=== PATIENT | female | born 1955 | race Caucasian/White ===

== ENCOUNTER → 2022-04-17 | Outpatient (CLI) | payer MEDICARE, OTHER, SELFPAY | END | disposition home or self-care (01) | LOC: PSN 10:25 | PROVIDERS: PCP Family Medicine; Referring Provider Internal Medicine Cardiovascular Disease; Visit Provider Internal Medicine Cardiovascular Disease | DX: I48.0 Paroxysmal atrial fibrillation (principal) | CPT/HCPCS: 93225; 93226 ==

== ENCOUNTER → 2022-05-05 | Outpatient (CLI) | payer MEDICARE, OTHER, SELFPAY | END | disposition home or self-care (01) | LOC: CR 13:34 | PROVIDERS: PCP Family Medicine; Referring Provider Internal Medicine Cardiovascular Disease; Visit Provider Internal Medicine Cardiovascular Disease | DX: Z95.5 Presence of coronary angioplasty implant and graft (principal); I49.01 Ventricular fibrillation; I46.9 Cardiac arrest, cause unspecified; I25.2 Old myocardial infarction; I25.5 Ischemic cardiomyopathy; I12.9 Hypertensive chronic kidney disease with stage 1 through stage 4 chronic kidney disease, or unspecified chronic kidney disease; E78.5 Hyperlipidemia, unspecified; N18.9 Chronic kidney disease, unspecified ==

== ENCOUNTER 2022-10-13 09:58 | Emergency (ER) | payer MEDICARE, OTHER, SELFPAY ==
[2022-10-13 10:00] VITALS: BP 93/59; PULSE 66; RESP 16; TEMP 36.2; O2SAT 98; BMI 25.1
--- NOTE | 2022-10-13 10:39 | EDS_ITS ---
HPI HPI - GI History of Present Illness Chief Complaint: Diarrhea Informant: patient and family (daughter) Narrative Narrative: 66-year-old female has had loose-watery nonbloody nonmelanotic diarrhea for the past 3 weeks off-and-on. No fevers or chills, no abdominal pain. Started while she was in [place] where she was for a couple months visiting family, other family members got it after she started, but they got better and she has had recurrent episodes, now has been aggressive again for the last 4 days. She has not been eating and not been drinking, because every time I do it makes the diarrhea worse. She now feels very lightheaded specially with standing, she has had no syncope. No suspicious food intake or uncooked meats or raw fish. No recent antibiotics for anything. This is the first time she has presented for care, but she did see a telemedicine physician while she was in [place] who advised that she take Imodium for 3 days initially. No travel out of the country. 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) Paroxysmal atrial fibrillation Positive JASMINA (antinuclear antibody) ST elevation myocardial infarction (STEMI) of inferior wall (09/07/21) Home Medications aspirin 81 mg tablet,delayed release (Adult Aspirin Regimen) 81 mg PO DAILY 02/21/22 [History Last Taken Unknown] atorvastatin 80 mg tablet 80 mg PO DAILY #90 tabs 02/21/22 [Rx Last Taken Unknown] cholecalciferol (vitamin D3) 25 mcg (1,000 unit) capsule 25 mcg PO DAILY 02/21/22 [History Last Taken Unknown] ferrous sulfate 325 mg (65 mg iron) tablet 325 mg PO DAILY 02/21/22 [History Last Taken Unknown] lisinopril 20 mg tablet 10 mg PO DAILY 02/21/22 [History Last Taken Unknown] sitagliptin phosphate 50 mg-metformin 500 mg tablet (Janumet) 1 tab PO BID 02/21/22 [History Last Taken Unknown] ticagrelor 90 mg tablet (Brilinta) 90 mg PO BID 02/21/22 [History Last Taken Unknown] carvedilol 25 mg tablet 25 mg PO BID #180 tabs 04/24/22 [Rx Last Taken Unknown] ciprofloxacin HCl 500 mg tablet (Cipro) 500 mg PO BID #6 tabs 10/13/22 [Rx Last Taken Unknown] Allergy/AdvReac Type Severity Reaction Status Date / Time latex Allergy Intermediate Swelling Verified 10/13/22 10:01 Penicillins Allergy RASH Verified 10/13/22 10:01 Family History Father Heart disease CHF Surgical History History of cataract surgery History of cholecystectomy History of coronary artery stent placement (09/13/21) Social History Smoking Status: Never smoker alcohol intake: never substance use type: does not use caffeine: Yes Type: coffee Number of servings: 2 ROS ROS ED Constitutional Constitutional ED: Reports malaise; Denies chills or fever(s) Eyes Eyes: Denies change in vision or diplopia ENT ENT ED: Denies rhinorrhea or sore throat Cardiovascular Cardiovascular: Reports lightheadedness and orthostatic symptoms; Denies chest pain, palpitations, pedal edema or syncope Respiratory/Chest Respiratory/Chest: Denies cough or dyspnea Gastrointestinal Gastrointestinal: Reports diarrhea and nausea; Denies abdominal pain, hematemesis, hematochezia, melena or vomiting Genitourinary Genitourinary ED: Denies dysuria or hematuria Musculoskeletal Musculoskeletal: Denies back pain or neck pain Integumentary Denies abscess or rash Neurologic Neurologic: Denies headache(s), paresthesias or weakness Psychiatric Psychiatric: Denies anxiety or suicidal thoughts EXAM Physical Exam Const Vital Signs: 10/13/22 10:00 10/13/22 15:38 10/13/22 16:57 Temperature 97.1 F L Temperature Source Temporal Pulse Rate 66 71 Respiratory Rate 16 15 Blood Pressure 93/59 L 112/64 139/84 H Blood Pressure Mean 70 80 Pulse Ox 98 98 Oxygen Delivery Method Room Air Positive well nourished and well developed General Appearance ED: well developed and NAD HEENT Reports moist mucous membranes normocephalic and atraumatic Eyes PERRL and EOMs intact bilaterally Neck full ROM and supple Resp normal respiratory effort and clear to auscultation bilaterally Cardio regular rate, regular rhythm and no murmurs GI non-tender and non-distended Auscultation: hyperactive bowel sounds Palpation: soft Back/Spine no CVA tenderness General Back: other FROM Extremity normal to inspection General Extremety ED: Negative for edema, pulses abnormal or tenderness General Extremity: Negative for edema or pulses abnormal Neuro oriented x3, CN's II-XII intact bilaterally and no sensory deficits noted Sensorium / Orientation: awake and alert Motor Exam: strength 5/5 throughout Skin no rashes or lesions noted and no wounds MDM MDM MDM Narrative Medical decision making narrative: Patient was given a liter of IV fluids and some Zofran for her nausea, she felt much better on reevaluation. She was able to provide us a diarrhea sample, fecal white blood cell smear returned positive, and the PCR for the enteric bacterial panel did take some time but the patient was agreeable to wait for the results. It turned out negative, as did her C. difficile test. Ova and parasites are sent and pending, I have a low suspicion for that. I am offering the patient a 3-day course of Cipro for this, only because she had acute kidney injury and this has been going on for 3 weeks. She is amenable to that, close outpatient follow-up advised. Her vital signs are normal and she is well- appearing at discharge. I did advise her to discontinue her atorvastatin temporarily while she is on the antibiotic, and I did advise her to drink plenty of fluids, even if it makes the diarrhea worse temporarily. Lab Data Attestation: I reviewed the patient's lab results. Labs: Laboratory Results - last 24 hr 10/13/22 10/13/22 10:53 10:53 WBC 6.8 RBC 3.90 L Hgb 11.5 L Hct 34.9 L MCV 89.5 MCH 29.5 MCHC 33.0 RDW Std Deviation 44.3 H RDW Coeff of Gagan 13.4 Plt Count 176 MPV 9.9 Immature Gran % (Auto) 0.400 Neut % (Auto) 68.8 Lymph % (Auto) 19.6 [place] % (Auto) 9.3 Eos % (Auto) 1.6 Baso % (Auto) 0.3 Absolute Neuts (auto) 4.7 Absolute Lymphs (auto) 1.33 Nucleated RBC % 0 Atypical Lymphocytes 1+ Sodium 135 L Potassium 4.8 Chloride 106 Carbon Dioxide 23.0 Anion Gap 6 BUN 30 H Creatinine 1.84 H Estim Creat Clear Calc 29.25 Est GFR (MDRD) Af Amer 35 L Est GFR (MDRD) Non-Af 29 L BUN/Creatinine Ratio 16.3 Glucose 187 H Calcium 9.5 Total Bilirubin 0.70 AST 14 L ALT 15 Alkaline Phosphatase 70 Total Protein 7.7 Albumin 3.1 L Globulin 4.6 H Albumin/Globulin Ratio 0.7 L Discharge Plan Triage Chief Complaint: Diarrhea ED Provider: Danish Portillo Dx/Rx/DC Orders Clinical Impression: Acute diarrhea, AYANA (acute kidney injury), Mild dehydration Instructions: ED Diarrhea, Unknown Cause Prescriptions: New ciprofloxacin HCl [Cipro] 500 mg tablet 500 mg PO BID Qty: 6 0RF No Action aspirin [Adult Aspirin Regimen] 81 mg tablet,delayed release (DR/EC) 81 mg PO DAILY Brilinta 90 mg tablet 90 mg PO BID Janumet 50-500 mg tablet 1 tab PO BID cholecalciferol (vitamin D3) 25 mcg (1,000 unit) capsule 25 mcg PO DAILY lisinopril 20 mg tablet 10 mg PO DAILY ferrous sulfate 325 mg (65 mg iron) tablet 325 mg PO DAILY atorvastatin 80 mg tablet 80 mg PO DAILY Qty: 90 3RF carvedilol 25 mg tablet 25 mg PO BID Qty: 180 2RF Rx Instructions: must administer with a meal/food Primary Care Provider: Sherry Galo Referrals: Sherry Galo DO [Primary Care Provider] - 3-5 Days if not improving Disposition Disposition: Home, Self Care Discharge Date/Time: 10/13/22 16:58
[2022-10-13 10:59] LABS: Absolute Lymphocyte Count 1.33 X10^3/uL (0.83-4.51); Absolute Neutrophil Count 4.7 X10^3/uL (2.0-7.7); Basophil# 0.02 X10^3/uL; Basophil% 0.3 % (0-1); Eosinophil# 0.11 X10^3/uL; Eosinophils% 1.6 % (0-5); Hematocrit 34.9 % (37-47); Hemoglobin 11.5 g/dL (12.0-15.0); Lymphocyte # 1.33 X10^3/ul (0.83-4.51); Lymphocyte % 19.6 % (19-41); Mean Corpuscular Hgb 29.5 pg (27.0-32.0); Mean Corpuscular Volume 89.5 fL (81-99); Mean Platelet Vol. 9.9 fl (6.2-12.0); Monocyte# 0.63 X10^3/uL; Monocyte% 9.3 % (0-10); NRBC Flagged by Analyzer 0 % (0-5); Neutrophil # 4.65 X10^3/uL (2.7-7.7); Neutrophil % 68.8 % (47-70); POSITIVE MORPHOLOGY YES; Platelet Count 176 K/mm3 (150-450); RBC Distribution Width CV 13.4 % (11.6-14.6); RBC Distribution Width SD 44.3 fl (35.1-43.9); White Blood Count 6.8 K/mm3 (4.4-11.0)
[2022-10-13] MEDS: 0.9% Normal Saline 1,000 ML 999 ML IV (11:02)
[2022-10-13 11:03] LABS: Differential Indicated SCAN CRITERIA MET
[2022-10-13] MEDS: Ondansetron 4 MG/2 ML Vial IV (11:03)
[2022-10-13 11:16] LABS: ALB/GLOB Ratio 0.7 RATIO (0.9-2.4); AST(SGOT) 14 U/L (15-37); Alanine Aminotransfer ALT/SGPT 15 U/L (13-56); Albumin, Serum 3.1 g/dL (3.2-5.0); Alkaline Phosphatase 70 U/L (45-117); Anion Gap 6 (5-15); BUN 30 mg/dL (7-18); BUN/Creat Ratio 16.3 RATIO (10-20); Calcium,Total 9.5 mg/dL (8.5-10.1); Chloride 106 mmol/L (98-107); Creatinine, Serum 1.84 mg/dL (0.55-1.02); EST Glomerular Filtration Rate 29 mL/min (>60); Est Glom Filt Rate - Afr Amer 35 mL/min (>60); Estimated Creatinine Clearance 29.25 ml/min; Globulin 4.6 g/dL (2.2-4.2); Glucose 187 mg/dL (74-106); Potassium 4.8 mmol/L (3.5-5.1); Protein, Total 7.7 g/dL (6.4-8.2); Sodium Level 135 mmol/L (136-145)
[2022-10-13 11:37] LABS: Atypical Lymphocyte 1+ %
[2022-10-13 15:38] VITALS: BP 112/64
[2022-10-13 16:57] VITALS: BP 139/84; PULSE 71; RESP 15; O2SAT 98
== END 2022-10-13 16:58 | disposition home or self-care (01) ==
PROVIDERS: Emergency Provider Emergency Medicine; PCP Family Medicine; Visit Provider Emergency Medicine
DX: R19.7 Diarrhea, unspecified (principal); N17.9 Acute kidney failure, unspecified; I48.0 Paroxysmal atrial fibrillation; E86.0 Dehydration; I25.10 Atherosclerotic heart disease of native coronary artery without angina pectoris; E78.5 Hyperlipidemia, unspecified; I12.9 Hypertensive chronic kidney disease with stage 1 through stage 4 chronic kidney disease, or unspecified chronic kidney disease; I25.2 Old myocardial infarction; N18.9 Chronic kidney disease, unspecified; Z95.5 Presence of coronary angioplasty implant and graft; Z79.82 Long term (current) use of aspirin; Z79.899 Other long term (current) drug therapy; Z86.74 Personal history of sudden cardiac arrest
CPT/HCPCS: 80053; 83630; 85025; 87177; 87209; 87493; 87506; 96360; 96361; 99283; J7030; A4216; J2405

== ENCOUNTER 2023-02-11 12:40 | Inpatient (IN) | payer MEDICARE, OTHER, SELFPAY ==
[2023-02-11] VITALS (24 sets, daily range): BP systolic 83–131; BP diastolic 48–86; PULSE 78–128; RESP 12–26; TEMP 36.1–37.1; O2SAT 90–100; BMI 26.8; BMI 26.2
--- NOTE | 2023-02-11 14:09 | EDS_ITS ---
HPI History of Present Illness Chief Complaint: Chest Pain Detail of Chief Complaint: Chest pain and shortness of breath Informant: patient Narrative Narrative: Patient presents the emergency department complaint of chest pain and shortness of breath. She has had some shortness of breath for at least a month. She was seen by her primary care physician 2 days ago and was noted to be in A-fib and was referred to cardiology and was seen yesterday by nurse practitioner. Patient was started on apixaban yesterday. Patient also started on Lasix yesterday. Since midnight she has had this pressure in her chest with some discomfort that radiates through to her back. Patient states that in 2021 she had 6 stents and afterwards had atrial fibrillation that then resolved. She is not sure how long she has been in A-fib at this time. Patient denies recent travel or surgery. No prior history of PE or DVT. She denies recent illness. 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) Paroxysmal atrial fibrillation Positive JASMINA (antinuclear antibody) ST elevation myocardial infarction (STEMI) of inferior wall (09/07/21) Home Medications aspirin 81 mg tablet,delayed release (Adult Aspirin Regimen) 81 mg PO DAILY HEART HEALTH 02/21/22 [History Last Taken Unknown] cholecalciferol (vitamin D3) 25 mcg (1,000 unit) capsule 25 mcg PO DAILY SUPPLEMENT 02/21/22 [History Last Taken Unknown] ferrous sulfate 325 mg (65 mg iron) tablet 325 mg PO DAILY SUPPLEMENT 02/21/22 [History Last Taken Unknown] atorvastatin 80 mg tablet 80 mg PO DAILY CHOLESTEROL #90 tabs 01/19/23 [Rx Last Taken Unknown] apixaban 5 mg tablet (Eliquis) 5 mg PO BID BLOOD THINNER #60 tabs 02/10/23 [Rx Last Taken Unknown] furosemide 40 mg tablet (Lasix) 40 mg PO DAILY FLUID #30 tabs 02/10/23 [Rx Last Taken Unknown] metformin 500 mg tablet 500 mg PO Q12H DIABETES 02/10/23 [History Last Taken Unknown] sitagliptin phosphate 50 mg tablet (Januvia) 50 mg PO DAILY DIABETES 02/10/23 [History Last Taken Unknown] carvedilol 25 mg tablet 25 mg PO BID HEART 02/11/23 [History Last Taken Unknown] lisinopril 10 mg tablet 10 mg PO DAILY BLOOD PRESSURE 02/11/23 [History Last Taken Unknown] Allergy/AdvReac Type Severity Reaction Status Date / Time latex Allergy Intermediate Swelling Verified 02/11/23 13:17 Penicillins Allergy RASH Verified 02/11/23 13:17 Family History (Reviewed 02/10/23 @ 09:35 by Javier Finn RESEARCH TEST ENGINE EVALUATOR, RESEARCH TEST ENGINE EVALUATOR-C) Father Heart disease CHF Surgical History History of cataract surgery History of cholecystectomy History of coronary artery stent placement (09/13/21) Social History Smoking Status: Never smoker alcohol intake: never substance use type: does not use caffeine: Yes Type: coffee Number of servings: 2 ROS ROS ED Review of Systems ROS Unobtainable: other Constitutional Constitutional ED: Reports lethargy; Denies chills, fever(s), sweats or weight loss Eyes Eyes: Denies blurry vision, change in vision or diplopia ENT ENT ED: Denies rhinorrhea or sore throat Cardiovascular Cardiovascular: Reports palpitations and racing heartbeat; Denies orthopnea Respiratory/Chest Respiratory/Chest: Reports dyspnea and dyspnea on exertion; Denies cough, orthopnea or sputum Gastrointestinal Gastrointestinal: Denies abdominal pain, diarrhea, nausea or vomiting Genitourinary Genitourinary ED: Denies dysuria, hematuria or urinary frequency Musculoskeletal Musculoskeletal: Denies arthralgias, back pain, myalgias or neck pain Integumentary Denies abscess, Abrasions or rash Neurologic Neurologic: Denies headache(s) or weakness Psychiatric Psychiatric: Denies anxiety, depression or suicidal thoughts Endocrine Endocrinology: Denies polydipsia, polyphagia or polyuria Hematologic/Lymphatic Hematologic/Lymphatic: Denies easy bleeding, easy bruising or lymphadenopathy Allergic/Immunologic Allergic/Immunologic ED: Denies mouth swelling, tongue swelling or urticaria EXAM Physical Exam Const Vital Signs: 02/11/23 12:41 02/11/23 13:11 02/11/23 13:13 Temperature 97.8 F Temperature Source Temporal Pulse Rate 125 H 125 H Respiratory Rate 16 16 Respiratory Effort Short of Breath Blood Pressure 119/80 121/76 H Blood Pressure Mean 93 91 Pulse Ox 97 99 Oxygen Delivery Method Room Air Room Air 02/11/23 14:07 02/11/23 14:30 02/11/23 15:59 Temperature Temperature Source Pulse Rate 128 H 114 H Respiratory Rate 26 H 21 H Respiratory Effort Blood Pressure 131/86 H 118/80 Blood Pressure Mean 101 92 Pulse Ox 97 98 96 Oxygen Delivery Method Room Air Room Air Positive well nourished and well developed General Appearance ED: well developed and NAD HEENT Reports TM's clear and moist mucous membranes normocephalic and atraumatic; Negative for trauma or tenderness Tympanic Membrane ED: Yes TM's clear Eyes PERRL and EOMs intact bilaterally General Eye ED: Negative for pale conjunctiva or scleral icterus Neck no lymphadenopathy, supple and no JVD General: Negative for tenderness Chest Wall inspection of chest normal and palpation of chest normal Chest: Negative for tenderness Resp normal respiratory effort and clear to auscultation bilaterally Resp Narrative: No excess or muscle use or retractions. Good aeration bilaterally. Few faint rales in the bases bilaterally. Effort and Inspection: Negative for respiratory distress or pain with movement Auscultation: rales; Negative for rhonchi, wheezes or diminished lung sounds Cardio S1 normal heart sound, S2 normal heart sound and no murmurs; Negative for regular rate or regular rhythm Rhythm: abnormal rhythm irregularly irregular Peripheral Pulses: pulses 2+ throughout GI normal to inspection, nondistended, normoactive bowel sounds, soft to palpation, non-tender, non-distended and no masses Back/Spine no CVA tenderness and no thoracic nor lumbar tenderness Extremity normal to inspection General Extremety ED: Negative for edema General Extremity: Negative for edema Neuro oriented x3, CN's II-XII intact bilaterally, no sensory deficits noted and gait normal Sensorium / Orientation: awake, alert, oriented to person, oriented to place and oriented to time Motor Exam: strength 5/5 throughout and strength abnormal Psych mental status grossly normal Skin no rashes or lesions noted and no wounds MDM MDM MDM Narrative Medical decision making narrative: Patient presents with chest pain and shortness of breath. Patient with Rales in her basis. In the differential would be acute coronary syndrome versus PE versus congestive heart failure versus infectious etiology which I suspect is le ss likely. IV line established. EKG obtained on arrival showed A-fib with a rate of [address] changes. CBC with differential showed a normal white count of 8.8 with a hemoglobin of 11 and platelet count of 190. Chemistries unremarkable. Troponin was normal at 28. BNP was elevated 472. D- dimer elevated 3.51. CTA of the chest was obtained to rule out PE and this was negative for PE or dissection. There was evidence of bilateral pleural effusions and CHF. Patient was medicated with morphine and Zofran. Patient was given Cardizem 20 mg IV bolus and this slowed her heart rate down into the 100s and then she was started on a Cardizem drip. Case will be discussed with hospitalist to evaluate patient for admission for CHF, chest pain, and A-fib RVR Lab Data Attestation: I reviewed the patient's lab results. Labs: Laboratory Results - last 24 hr 02/11/23 13:50 WBC 8.8 RBC 3.96 L Hgb 11.1 L Hct 36.3 L MCV 91.7 MCH 28.0 MCHC 30.6 L RDW Std Deviation 47.9 H RDW Coeff of Gagan 14.1 Plt Count 190 MPV 10.3 Immature Gran % (Auto) 0.800 Neut % (Auto) 78.7 H Lymph % (Auto) 10.6 L [place] % (Auto) 8.8 Eos % (Auto) 0.6 Baso % (Auto) 0.5 Absolute Neuts (auto) 6.9 Absolute Lymphs (auto) 0.93 Nucleated RBC % 0 D-Dimer Quant (PE/DVT) 3.51 H* Sodium 135 L Potassium 4.6 Chloride 107 Carbon Dioxide 22.0 Anion Gap 6 BUN 21 H Creatinine 1.56 H Estim Creat Clear Calc 34.03 Est GFR (MDRD) Af Amer 43 L Est GFR (MDRD) Non-Af 35 L BUN/Creatinine Ratio 13.5 Glucose 207 H Calcium 9.5 Troponin I High Sens 28 B-Natriuretic Peptide 472.4 H Radiography Chest X-Ray - ED: 1 View Diagnostic Testing: Clinical Impression(s) from Imaging Studies Chest X-Ray 02/11/23 14:20 IMPRESSION: Findings suggestive of mild CHF with bibasilar atelectasis and blunting of both costophrenic angles worse on the right side. Electronically Signed: Ky Issa MD at 14:43 EDT , Chest CTA 02/11/23 14:39 IMPRESSION: Small bilateral pleural effusions with bibasilar atelectasis and mild CHF. Cardiomegaly. Coronary artery calcification. No evidence of pulmonary embolism. Electronically Signed: Ky Issa MD at 15:25 EDT , 1 view chest x-ray obtained interpreted by myself as increased vascular markings and congestion suspicious for CHF. Radiology in agreement. EKG Initial EKG: Attestation: I personally reviewed and interpreted this EKG as follows: Comments: A-fib RVR with a rate of [address] changes Discharge Plan Triage Chief Complaint: Chest Pain ED Provider: Rafael Ayers Dx/Rx/DC Orders Clinical Impression: CHF (congestive heart failure), Chest pain, Atrial fibrillation with RVR Prescriptions: No Action aspirin [Adult Aspirin Regimen] 81 mg tablet,delayed release (DR/EC) 81 mg PO DAILY cholecalciferol (vitamin D3) 25 mcg (1,000 unit) capsule 25 mcg PO DAILY ferrous sulfate 325 mg (65 mg iron) tablet 325 mg PO DAILY metformin 500 mg tablet 500 mg PO Q12H Januvia 50 mg tablet 50 mg PO DAILY Eliquis 5 mg tablet 5 mg PO BID Qty: 60 12RF furosemide [Lasix] 40 mg tablet 40 mg PO DAILY Qty: 30 11RF lisinopril 10 mg tablet 10 mg PO DAILY carvedilol 25 mg tablet 25 mg PO BID atorvastatin 80 mg tablet 80 mg PO DAILY Qty: 90 3RF Primary Care Provider: Sherry Galo Referrals: Sherry Galo DO [Primary Care Provider] - Disposition Disposition: Acute Care Hospital [facility]
[2023-02-11] MEDS: dilTIAZem 25 MG/5 ML Vial 20 MG IV BOLUS (14:15)
--- NOTE | 2023-02-11 14:20 | RAD_ITS ---
STUDY: X-RAY CHEST REASON FOR EXAM: Female, 67 years old. Chest pain. Atrial fibrillation. TECHNIQUE: Single AP portable view of the chest. COMPARISON: None. FINDINGS: EKG electrodes are seen. Basilar congestion. Increased markings at the lung bases with some blunting of both costophrenic angles slightly more prominent on the right side. This may represent bibasilar atelectasis. Normal size heart. Normal mediastinum and adilson. Normal visualized pulmonary arteries. Normal visualized aortic arch and descending thoracic aorta. There are diffuse degenerative changes of the visualized thoracic spine. Normal visualized ribs, clavicles, and shoulders. There is no demonstrated abnormality of the visualized soft tissue structures of the upper abdomen. RAD/Chest 1 View (Portable) IMPRESSION: Findings suggestive of mild CHF with bibasilar atelectasis and blunting of both costophrenic angles worse on the right side. Electronically Signed: Ky Issa MD at 14:43 EDT ,
[2023-02-11 14:21] LABS: Absolute Lymphocyte Count 0.93 X10^3/uL (0.83-4.51); Absolute Neutrophil Count 6.9 X10^3/uL (2.0-7.7); Basophil# 0.04 X10^3/uL; Basophil% 0.5 % (0-1); Eosinophil# 0.05 X10^3/uL; Eosinophils% 0.6 % (0-5); Hematocrit 36.3 % (37-47); Hemoglobin 11.1 g/dL (12.0-15.0); Lymphocyte # 0.93 X10^3/ul (0.83-4.51); Lymphocyte % 10.6 % (19-41); Mean Corp Hgb Conc 30.6 g/dL (32-36); Mean Corpuscular Volume 91.7 fL (81-99); Mean Platelet Vol. 10.3 fl (6.2-12.0); Monocyte# 0.77 X10^3/uL; Monocyte% 8.8 % (0-10); NRBC Flagged by Analyzer 0 % (0-5); Neutrophil # 6.89 X10^3/uL (2.7-7.7); Neutrophil % 78.7 % (47-70); Platelet Count 190 K/mm3 (150-450); RBC Distribution Width CV 14.1 % (11.6-14.6); RBC Distribution Width SD 47.9 fl (35.1-43.9); Red Blood Count 3.96 M/mm3 (4.2-5.4); White Blood Count 8.8 K/mm3 (4.4-11.0)
[2023-02-11] MEDS: 0.9% Normal Saline 1,000 ML 10 ML IV (14:28)
[2023-02-11 14:37] LABS: Anion Gap 6 (5-15); BUN 21 mg/dL (7-18); BUN/Creat Ratio 13.5 RATIO (10-20); Calcium,Total 9.5 mg/dL (8.5-10.1); Chloride 107 mmol/L (98-107); Creatinine, Serum 1.56 mg/dL (0.55-1.02); D-Dimer Quantitative (DVT/PE) 3.51 FEU/ug/m (0.27-0.49); EST Glomerular Filtration Rate 35 mL/min (>60); Est Glom Filt Rate - Afr Amer 43 mL/min (>60); Estimated Creatinine Clearance 34.03 ml/min; Glucose 207 mg/dL (74-106); Potassium 4.6 mmol/L (3.5-5.1); Sodium Level 135 mmol/L (136-145); Troponin-I HS (w/2H Reflex) 28 pg/mL (3.0-54.0)
--- NOTE | 2023-02-11 14:39 | CT_ITS ---
STUDY: CTA CHEST REASON FOR EXAM: Female, 67 years old. Chest pain RADIATION DOSAGE (If Supplied By Facility): CTDIvol = ( 10.75 ) mGy, DLP = ( 312.19 ) mGycm TECHNIQUE: The examination was performed with the intravenous administration of IV 100mL [id number]-370. Post-processing of the angiographic images was performed, with multiplanar reformation and 3D reconstruction. Individualized dose optimization techniques were used for this CT. COMPARISON: None. FINDINGS: Normal enhancement of the main pulmonary artery and right and left pulmonary arteries. Normal enhancement of the bilateral peripheral pulmonary arteries. There is no demonstrated pulmonary embolism. There is atherosclerotic calcification of the aortic arch with tortuosity. There is no demonstrated aortic dissection. There are calcifications of the coronary arteries. There are visualized mediastinal lymph nodes, which are within normal size limits, and with normal morphology. Normal hilar regions. Normal visualized trachea and bronchi. Small bilateral pleural effusions with increased markings at the lung bases suggest some bibasilar atelectasis. Mild increased interstitial markings. Findings suggest a mild degree of CHF. Normal pleura. Normal chest wall structures. There are degenerative changes of thoracic spine. Increased kyphosis. Normal visualized upper abdomen. CT/CTA Chest W/WO Contrast IMPRESSION: Small bilateral pleural effusions with bibasilar atelectasis and mild CHF. Cardiomegaly. Coronary artery calcification. No evidence of pulmonary embolism. Electronically Signed: Ky Issa MD at 15:25 EDT ,
[2023-02-11 14:47] LABS: BNP,B-Type NATRIURETIC PEPTIDE 472.4 pg/mL (0-100)
[2023-02-11] MEDS: Ondansetron 4 MG/2 ML Vial IV (15:57)
[2023-02-11] MEDS: Morphine 4 MG/ML Syringe IM (15:57)
[2023-02-11 16:15] LABS: Reflex Troponin-HS? (from REC) Y
--- NOTE | 2023-02-11 16:20 | HP.PCM.HOS_ITS ---
HPI - General General Date of Admission: 02/11/23 Date of Service: 02/11/23 Chief Complaint: Shortness of breath for 3 to 4 weeks with PND and exertional dyspnea HPI Narrative ALONDRA HOLLAND, is a 67 F With history of coronary artery status post stents in August 2021 in [place] to ED for shortness of breath for 3 to 4 weeks. She describes her shortness of breath is exertional on walking stairs but not at rest. She she also has PND, wakes up 2-3 times to catch breath and sleeps in reclining position. She denies prior history of heart failure. Last echo in December 2021 reported 50 to 55%. She went to see her PCP about 2 to 3 days ago and had an echo in , [facility]. She also saw Javier quintana NP yesterday her EKG on 02/09/2023 showed A-fib with RVR 112 bpm and Brilinta was changed to Eliquis. She was diagnosed with new onset A-fib with RVR. Lasix was started and advised to return cardiology clinic in 4 weeks. She started having chest pain/pressure started anteriorly in middle of chest with radiation to back last night. It felt like pressure along with shortness of breath. In ED chest x-ray and CTA chest was done which shows pulmonary congestion mild bilateral effusion suggestive of CHF exacerbation. She was found to A-fib with RVR with heart rate about 125, and was started on Cardizem drip. No hypoxia. 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) Paroxysmal atrial fibrillation Positive JASMINA (antinuclear antibody) ST elevation myocardial infarction (STEMI) of inferior wall (09/07/21) Home Medications aspirin 81 mg tablet,delayed release (Adult Aspirin Regimen) 81 mg PO DAILY HEART HEALTH 02/21/22 [History Last Taken Unknown] cholecalciferol (vitamin D3) 25 mcg (1,000 unit) capsule 25 mcg PO DAILY SUPPLEMENT 02/21/22 [History Last Taken Unknown] ferrous sulfate 325 mg (65 mg iron) tablet 325 mg PO DAILY SUPPLEMENT 02/21/22 [History Last Taken Unknown] atorvastatin 80 mg tablet 80 mg PO DAILY CHOLESTEROL #90 tabs 01/19/23 [Rx Last Taken Unknown] apixaban 5 mg tablet (Eliquis) 5 mg PO BID BLOOD THINNER #60 tabs 02/10/23 [Rx Last Taken Unknown] furosemide 40 mg tablet (Lasix) 40 mg PO DAILY FLUID #30 tabs 02/10/23 [Rx Last Taken Unknown] metformin 500 mg tablet 500 mg PO Q12H DIABETES 02/10/23 [History Last Taken Unknown] sitagliptin phosphate 50 mg tablet (Januvia) 50 mg PO DAILY DIABETES 02/10/23 [History Last Taken Unknown] carvedilol 25 mg tablet 25 mg PO BID HEART 02/11/23 [History Last Taken Unknown] lisinopril 10 mg tablet 10 mg PO DAILY BLOOD PRESSURE 02/11/23 [History Last Taken Unknown] Allergy/AdvReac Type Severity Reaction Status Date / Time latex Allergy Intermediate Swelling Verified 02/11/23 13:17 Penicillins Allergy RASH Verified 02/11/23 13:17 Family History Father Heart disease CHF Surgical History History of cataract surgery History of cholecystectomy History of coronary artery stent placement (09/13/21) Social History Smoking Status: Never smoker alcohol intake: never substance use type: does not use caffeine: Yes Type: coffee Number of servings: 2 ROS ROS Narrative Constitutional: Reports fatigue and weakness. No fever. HEENT: Reports systems reviewed and no addt'l complaints, except as documented Respiratory/Chest: As described in HPI CVS: Chest pressure as described in HPI Gastrointestinal: Mild nausea but no vomiting. Diarrhea for 1 to 2 months getting outpatient work-up. Denies coffee ground emesis, hematemesis or vomiting or melena Genitourinary: Denies burning urination or new urinary tract symptoms Musculoskeletal: Denies acute joint pain or limited range of motion. No acute injury Neurologic: Denies seizure-like symptoms. No strokelike symptoms. skin: No ulcer. No rash Endocrinology: Reports systems reviewed and no addt'l complaints, except as documented Hematologic/Lymphatic: Reports systems reviewed and no addt'l complaints, except as documented Rest 14 ROS are negative except as mentioned in HPI Vital Signs Vital Signs Vital Signs: 02/11/23 12:41 02/11/23 13:11 02/11/23 13:13 Temperature 97.8 F Temperature Source Temporal Pulse Rate 125 H 125 H Respiratory Rate 16 16 Respiratory Effort Short of Breath Blood Pressure 119/80 121/76 H Blood Pressure Mean 93 91 Pulse Ox 97 99 Oxygen Delivery Method Room Air Room Air 02/11/23 14:07 02/11/23 14:30 02/11/23 15:59 Temperature Temperature Source Pulse Rate 128 H 114 H Respiratory Rate 26 H 21 H Respiratory Effort Blood Pressure 131/86 H 118/80 Blood Pressure Mean 101 92 Pulse Ox 97 98 96 Oxygen Delivery Method Room Air Room Air 02/11/23 16:11 Temperature 98 F Temperature Source Temporal Pulse Rate 110 H Respiratory Rate 18 Respiratory Effort Blood Pressure 118/80 Blood Pressure Mean 92 Pulse Ox 94 Oxygen Delivery Method Room Air Weight Weight: 171 lb 1.259 oz Body Mass Index (BMI) 26.8 Physical Exam Narrative General: Alert, Oriented x3, Cooperative HEENT: Atraumatic, PERRLA, EOMI, Normocephalic Oral: No Gingival or Mucosal Lesions/ Ulcerations Neck: Supple, No JVD, Negative Carotid Bruits Lungs: Air entry diminished in bilateral lung bases. Bilateral pleural effusion right more than left. No hypoxia. No crepitation/rhonchi Cardiovascular: A-fib with RVR. Normal S1, Normal S2, No murmurs Abdomen: Bowel Sounds Present, Soft, Non Tender, Non-Distended : No renal angle tenderness. No suprapubic tenderness. Extremities: No significant pedal/ankle edema, Capillary Refill Less than 3 Seconds Skin: No rashes, No breakdown Musculoskeletal: No Tenderness to Palpation of Joints or Extremities. ROM full and intact. Neurological: Cranial nerves II-XII grossly intact, DTR 2+/4. No acute focal neurological defic Psych/Mental Status: Normal Affect, Appropriate. Results Lab / Micro Data 02/11/23 13:50 02/11/23 13:50 Labs: Laboratory Results - last 24 hr 02/11/23 13:50: WBC 8.8, RBC 3.96 L, Hgb 11.1 L, Hct 36.3 L, MCV 91.7, MCH 28.0, MCHC 30.6 L, RDW Std Deviation 47.9 H, RDW Coeff of Gagan 14.1, Plt Count 190, MPV 10.3, Immature Gran % (Auto) 0.800, Neut % (Auto) 78.7 H, Lymph % (Auto) 10.6 L, [place] % (Auto) 8.8, Eos % (Auto) 0.6, Baso % (Auto) 0.5, Absolute Neuts (auto) 6.9, Absolute Lymphs (auto) 0.93, Nucleated RBC % 0, D-Dimer Quant (PE/DVT) 3.51 H*, Sodium 135 L, Potassium 4.6, Chloride 107, Carbon Dioxide 22.0, Anion Gap 6, BUN 21 H, Creatinine 1.56 H, Estim Creat Clear Calc 34.03, Est GFR (MDRD) Af Amer 43 L, Est GFR (MDRD) Non-Af 35 L, BUN/Creatinine Ratio 13.5, Glucose 207 H, Calcium 9.5, Troponin I High Sens 28, B-Natriuretic Peptide 472.4 H Radiology Impression Chest X-Ray 02/11/23 14:20 IMPRESSION: Findings suggestive of mild CHF with bibasilar atelectasis and blunting of both costophrenic angles worse on the right side. Electronically Signed: Ky Issa MD at 14:43 EDT , Chest CTA 02/11/23 14:39 IMPRESSION: Small bilateral pleural effusions with bibasilar atelectasis and mild CHF. Cardiomegaly. Coronary artery calcification. No evidence of pulmonary embolism. Electronically Signed: Ky Issa MD at 15:25 EDT , Assessment & Plan Assessment/Plan (1) Atrial fibrillation with RVR: (2) Chest pain: QUALIFIERS: Chest pain type: precordial pain Qualified Code(s): R07.2 - Precordial pain (3) Acute on chronic heart failure with preserved ejection fraction (HFpEF): PLAN: Plan 1. Recent diagnosis of paroxysmal A-fib as outpatient and now RVR: Patient is being admitted in PCU. [id number] score is 6 (age, gender, HTN, DM, CHF, AK). Patient is started on Cardizem drip in ED and will increase to 10 mg/h. Patient already on maximum dose of carvedilol 25 mg twice daily continued. Continue aspirin and Eliquis. 2. Acute on chronic HFpEF/CHF exacerbation: Her last echo in December 2021 was 50 to 55% with mildly enlarged left and right atrium suggestive of chronic HF pEF.She had echo about 2 days ago we will try to get the echo. Started on Lasix 40 mill IV twice daily. Heart failure core measures including intake and output, fluid restriction less than 1500 mL, daily weight monitoring, kidney and electrolytes monitoring. Continue lisinopril. 3. Atypical chest pain with history of coronary artery disease, old inferior wall AK and cardiac stents: She had PCI to proximal-mid RCA as primary PCI in 2021 and then a staged, proximal, mid LAD in September 2021. She did not had chest pain or pressure since then until now. For now patient in A-fib with RVR and CHF etc. and therefore not candidate for stress test. Cycle cardiac enzymes, TSH and fasting for tomorrow AM. 4. CKD stage IIIb: Patient last BUN/creatinine was 36/1.84 in October 2022. Currently 21/1.56 better. Estimated creatinine clearance 34 mm/min. Monitor kidney function. 5. Diabetes mellitus type 2: Patient is on metformin and will hold it. Continue Sitagliptin. 6. Chronic diarrhea for 1 to 2 months: Getting outpatient work-up for differential celiac disease, Crohn's disease/ulcerative colitis or IBS. Patient has outpatient referral for GI by PCP. Symptomatic control and management. 7.. History of cardiac arrest with ventricular fibrillation in August 2021, hypertension, dyslipidemia, anemia of chronic disease: Patient on iron. DVT prophylaxis: Patient on Eliquis continued. Living will/advanced directive/end of life care: Patient does not have living will or advanced directive. Patient does not have designated power of document review attorney for health but daughter in the ED is next to kin. After discussion of benefits/risks procedures involved with full code, DNR CC arrest and DNR CC, the patient and her daughter opted for full code. Patient does want artificial life support including intubation, tube feed, ventilator and/chest compression, central venous catheter, vasopressor and DC shock if needed Total time spent in [id number] encounter in discussion of advanced directive 17 minutes. Charges/Coding Visit Charges Inpatient E&M: 07289 Init Hosp L3 Procedures Hospitalists Procedures: 43097 Advncd Care Plan 30 Min
[2023-02-11 16:44] LABS: Troponin-I HS 27 pg/mL (3.0-54.0)
[2023-02-11 16:47] LABS: Magnesium 1.6 mg/dL (1.6-2.6); Phosphorus 3.5 mg/dL (2.5-4.9)
--- NOTE | 2023-02-11 16:53 | EKG12_ITS ---
Test Reason : Blood Pressure : / mmHG Vent. Rate : 132 BPM Atrial Rate : 000 BPM P-R Int : 000 ms QRS Dur : 084 ms QT Int : 310 ms P-R-T Axes : 000 007 105 degrees QTc Int : 459 ms Atrial fibrillation with rapid ventricular response Low voltage QRS Nonspecific ST and T wave abnormality Abnormal ECG Confirmed by WENDY LYLES, JAYJAY ([id number]), medical transcription editor MINE WALLIS ([id number]) on 02/13/2023 1:23:48 PM Referred By: VIPUL Confirmed By:CHELSEY NGUYEN MD
--- NOTE | 2023-02-11 17:14 | EKG12_ITS ---
Test Reason : CP Blood Pressure : / mmHG Vent. Rate : 118 BPM Atrial Rate : 000 BPM P-R Int : 000 ms QRS Dur : 084 ms QT Int : 350 ms P-R-T Axes : 000 -10 083 degrees QTc Int : 490 ms Atrial fibrillation with rapid ventricular response Nonspecific T wave abnormality Abnormal ECG When compared with ECG of 11-FEB-2023 12:47, MANUAL COMPARISON REQUIRED, DATA IS UNCONFIRMED Confirmed by WENDY LYLES, JAYJAY ([id number]), senior editor MINE WALLIS ([id number]) on 02/13/2023 1:36:04 PM Referred By: RICHARD Confirmed By:CHELSEY NGUYEN MD
--- NOTE | 2023-02-11 17:55 | NURSING ---
placed o2 on patient states still has chest pressure never went away. states pressure relieving with the o2 on
[2023-02-11] MEDS: Furosemide 40 MG/4 ML Vial IV (18:13)
[2023-02-11] MEDS: 0.9% Saline Lock 10 ML Syringe IV (18:14)
[2023-02-11 19:55] LABS: Troponin-I HS 31 pg/mL (3.0-54.0)
[2023-02-11] MEDS: Acetaminophen 325 MG Tablet 650 MG PO (20:55)
[2023-02-11] MEDS: Atorvastatin Calcium 80 MG Tablet PO (20:55)
[2023-02-11] MEDS: Carvedilol 25 MG Tablet PO (20:55)
[2023-02-11] MEDS: Insulin Lispro 100 UNIT/ML INSULN.PEN SC (20:55)
[2023-02-11] MEDS: APIXABAN 5 MG TABLET PO (23:58)
[2023-02-12] VITALS (29 sets, daily range): BP systolic 100–141; BP diastolic 47–76; PULSE 75–120; RESP 12–23; TEMP 35.6–36.8; O2SAT 93–100; BMI 26.1
[2023-02-12 01:13] LABS: Bedside Glucose 174 mg/dL (74-106)
[2023-02-12 05:44] LABS: Absolute Lymphocyte Count 1.59 X10^3/uL (0.83-4.51); Absolute Neutrophil Count 4.8 X10^3/uL (2.0-7.7); Basophil# 0.03 X10^3/uL; Basophil% 0.4 % (0-1); Eosinophil# 0.09 X10^3/uL; Eosinophils% 1.2 % (0-5); Hematocrit 31.8 % (37-47); Lymphocyte # 1.59 X10^3/ul (0.83-4.51); Lymphocyte % 20.6 % (19-41); Mean Corp Hgb Conc 31.4 g/dL (32-36); Mean Corpuscular Hgb 28.5 pg (27.0-32.0); Mean Corpuscular Volume 90.6 fL (81-99); Mean Platelet Vol. 10.2 fl (6.2-12.0); Monocyte# 1.15 X10^3/uL; Monocyte% 14.9 % (0-10); NRBC Flagged by Analyzer 0 % (0-5); Neutrophil # 4.81 X10^3/uL (2.7-7.7); Neutrophil % 62.5 % (47-70); Platelet Count 177 K/mm3 (150-450); RBC Distribution Width CV 14.3 % (11.6-14.6); RBC Distribution Width SD 46.5 fl (35.1-43.9); Red Blood Count 3.51 M/mm3 (4.2-5.4); White Blood Count 7.7 K/mm3 (4.4-11.0)
[2023-02-12 06:32] LABS: Anion Gap 3 (5-15); BUN 26 mg/dL (7-18); BUN/Creat Ratio 14.4 RATIO (10-20); Calcium,Total 9.1 mg/dL (8.5-10.1); Chloride 102 mmol/L (98-107); Cholesterol 66 mg/dL (200); EST Glomerular Filtration Rate 30 mL/min (>60); Est Glom Filt Rate - Afr Amer 36 mL/min (>60); Estimated Creatinine Clearance 29.49 ml/min; Glucose 182 mg/dL (74-106); High Density Lipoprotein 45 mg/dL; Potassium 4.6 mmol/L (3.5-5.1); Sodium Level 134 mmol/L (136-145); Thyroid Stim Hormone (TSH) 0.52 uIU/mL (0.358-3.74); Triglycerides 80 mg/dL; Very Low Density Lipoprotein 16 mg/dL (5-40)
[2023-02-12] MEDS: Insulin Lispro 100 UNIT/ML INSULN.PEN SC ×4 (07:54→22:31)
[2023-02-12] MEDS: Ferrous Sulfate 325 MG Tablet PO (07:56)
[2023-02-12] MEDS: Aspirin E.C. 81 MG Tablet PO (07:56)
[2023-02-12 08:41] LABS: Bedside Glucose 202 mg/dL (74-106)
--- NOTE | 2023-02-12 09:06 | PN.HOSP_ITS ---
Reason for Visit Reason for Visit: Diagnoses Unspecified atrial fibrillation (02/11/23) Acute on chronic diastolic (congestive) heart failure (02/11/23) Precordial pain (02/11/23) Subjective Subjective Feels well. Denies complaints. Objective Data Objective Data Vital Signs: Vital Signs Temp Pulse Resp BP Pulse Ox O2 Del Method O2 Flow Rate 35.6 C L 85 22 H 133/76 H 98 Nasal Cannula 2 02/12/23 08:00 02/12/23 08:00 02/12/23 08:00 02/12/23 08:00 02/12/23 08:00 02/12/23 08:00 02/12/23 08:00 Oxygen Flow Rate (L/min) 2 Oxygen Delivery Method Nasal Cannula Weight: 75.7 kg Body Mass Index (BMI) 26.1 Intake & Output: Intake and Output for Last 24 Hours 02/10/23 02/11/23 02/12/23 23:59 23:59 23:59 Intake Total 158.48 / 358.48 226.58 / 226.58 Output Total 700 / 700 700 / 700 Balance -541.52 / -341.52 -473.42 / -473.42 Lab / Micro Data 02/12/23 05:18 02/12/23 05:18 Labs: Laboratory Results - last 24 hr 02/11/23 13:50: WBC 8.8, RBC 3.96 L, Hgb 11.1 L, Hct 36.3 L, MCV 91.7, MCH 28.0, MCHC 30.6 L, RDW Std Deviation 47.9 H, RDW Coeff of Gagan 14.1, Plt Count 190, MPV 10.3, Immature Gran % (Auto) 0.800, Neut % (Auto) 78.7 H, Lymph % (Auto) 10.6 L, [place] % (Auto) 8.8, Eos % (Auto) 0.6, Baso % (Auto) 0.5, Absolute Neuts (auto) 6.9, Absolute Lymphs (auto) 0.93, Nucleated RBC % 0, D-Dimer Quant (PE/DVT) 3.51 H*, Sodium 135 L, Potassium 4.6, Chloride 107, Carbon Dioxide 22.0, Anion Gap 6, BUN 21 H, Creatinine 1.56 H, Estim Creat Clear Calc 34.03, Est GFR (MDRD) Af Amer 43 L, Est GFR (MDRD) Non-Af 35 L, BUN/Creatinine Ratio 13.5, Glucose 207 H, Calcium 9.5, Troponin I High Sens 28, B-Natriuretic Peptide 472.4 H 02/11/23 16:10: Phosphorus 3.5, Magnesium 1.6, Troponin I High Sens 27 02/11/23 19:28: Troponin I High Sens 31 02/11/23 20:53: POC Glucose 174 H 02/12/23 05:18: WBC 7.7, RBC 3.51 L, Hgb 10.0 L, Hct 31.8 L, MCV 90.6, MCH 28.5, MCHC 31.4 L, RDW Std Deviation 46.5 H, RDW Coeff of Gagan 14.3, Plt Count 177, MPV 10.2, Immature Gran % (Auto) 0.400, Neut % (Auto) 62.5, Lymph % (Auto) 20.6, [place] % (Auto) 14.9 H, Eos % (Auto) 1.2, Baso % (Auto) 0.4, Absolute Neuts (auto) 4.8, Absolute Lymphs (auto) 1.59, Nucleated RBC % 0, Sodium 134 L, Potassium 4.6, Chloride 102, Carbon Dioxide 29.0, Anion Gap 3 L, BUN 26 H, Creatinine 1.80 H, Estim Creat Clear Calc 29.49, Est GFR (MDRD) Af Amer 36 L, Est GFR (MDRD) Non-Af 30 L, BUN/Creatinine Ratio 14.4, Glucose 182 H, Calcium 9.1, Triglycerides 80, Cholesterol 66, LDL Cholesterol 5, VLDL Cholesterol 16, HDL Cholesterol 45, TSH 0.52 02/12/23 07:49: POC Glucose 202 H Radiography Diagnostic Testing: Radiology Impression Chest X-Ray 02/11/23 14:20 IMPRESSION: Findings suggestive of mild CHF with bibasilar atelectasis and blunting of both costophrenic angles worse on the right side. Electronically Signed: Ky Issa MD at 14:43 EDT , Chest CTA 02/11/23 14:39 IMPRESSION: Small bilateral pleural effusions with bibasilar atelectasis and mild CHF. Cardiomegaly. Coronary artery calcification. No evidence of pulmonary embolism. Electronically Signed: Ky Issa MD at 15:25 EDT , Physical Exam Const alert and no apparent distress Resp normal respiratory effort, no retractions, no use of accessory muscles and clear to auscultation bilaterally Cardio regular rate, regular rhythm, S1 normal heart sound and S2 normal heart sound GI normal to inspection, nondistended, normoactive bowel sounds, soft to palpation and non-tender Assessment & Plan Assessment/Plan (1) Atrial fibrillation with RVR: PLAN: Started on dilt gtt Anticoagulated with apixaban Continue carvedilol 25 BID Reviewed cardiology note from 02/10: Tentative plan for cardioversion. Cardiology consulted. Changing dilt to PO 30 Q6h. (2) Acute on chronic heart failure with preserved ejection fraction (HFpEF): PLAN: Her last echo in December 2021 was 50 to 55% with mildly enlarged left and right atrium suggestive of chronic HFpEF. She had echo about 2 days ago we will try to get the echo. Furosemide 40 mill IV twice daily. Continue lisinopril. Already on carvedilol, continue (3) Chest pain: QUALIFIERS: Chest pain type: precordial pain Qualified Code(s): R07.2 - Precordial pain PLAN: h/o of vfib arrest. previously had SKS-IBC-Jung-Mid RCA w/ 3.0 x 38 mm and 3.0 x 20mm Synergy Stent 09/07/2021; [id number] and Mid LAD w/ 3.5 x 18 mm and 3.0 x 18 mm overlapping Marlon Stents, NARINDER-Prox and Mid LCx w/ 3.5 x 12 and 3.5 x 38 mm overlapping Marlon Stents 09/13/2021 recently taken off ticagrelor PLAN: Plan Chronic conditions: * Diabetes mellitus type 2: Patient is on metformin and will hold it. Continue Sitagliptin. * Chronic diarrhea for 1 to 2 months: Getting outpatient work-up for differential celiac disease, Crohn's disease/ulcerative colitis or IBS. Patient has outpatient referral for GI by PCP. Symptomatic control and management. DVT prophylaxis: not indicated, already anticoagulated. Code status: Full. Charges/Coding Visit Charges Inpatient E&M: 14571 Subs Hosp L2
[2023-02-12] MEDS: Carvedilol 25 MG Tablet PO ×2 (09:27→22:32)
[2023-02-12] MEDS: APIXABAN 5 MG TABLET PO ×2 (09:27→22:32)
[2023-02-12] MEDS: 0.9% Saline Lock 10 ML Syringe IV (09:30)
[2023-02-12] MEDS: LINAGLIPTIN 5 MG TABLET PO (09:30)
[2023-02-12] MEDS: Cholecalciferol (VIT D3) 25 MCG TABLET (1,000 UNITS) PO (09:30)
[2023-02-12] MEDS: Furosemide 40 MG/4 ML Vial IV ×2 (10:57→17:00)
[2023-02-12] MEDS: Lisinopril 10 MG Tablet PO (10:57)
--- NOTE | 2023-02-12 11:23 | CASEMGMT ---
RN?CM?ELECTRICAL CONTROLS TECHNICIAN?CM?to room to meet with patient for initial transition planning/care coordination?assessment.?RN?CM?introduced self and role at [facility].? Pt voices understanding and consents to?assessment?at this time.? Pt resting in bed in no distress at this time.? Dtr, Viv, and another family member at bedside and pt agreeable to them both being present during assessment. Pt is A/O at this time and answers all questions appropriately.?? Care providers, pharmacy, and demographics verified/updated at this time. PCP: Dr Sherry Galo Specialists: Dr Greenberg-cardiology, Dr Pimentel-financial aid coordinator @ [facility] Preferred Pharmacy: [facility] Insurance: [employer] Prescription Benefit:?Yes. Pt was just recently started on Eliquis. She states she did use the 30-day savings card and her refills are $50/month, which is affordable. Living Will/HPOA:?Pt does not currently have LW/HCPOA and declines info at this time.? Pt made aware that she can contact as an out-pt and make appt in the future if she decides she would like to talk with someone about this or would like to utilize [facility] social work for advanced directive completion.? LNOK: Dtr, Viv. Son, Gatito Living Arrangements: Lives w/her dtr in 2-story home w/no steps to enter. Denies difficulty w/stairs. States she is independent w/ADL's and IADL's. Transportation:?Pt states drives self and states no transportation concerns at this time.?Dtr will take her home @ d/c. DME: States has the following DME:?functioning glucometer w/supplies. States she is not on insulin. Has all medications needed. No Home O2 and does not have a pulse ox. Recommended to get a pulse ox and pt states it is affordable to buy one. Pt states no need for further DME at this time.? HHC/SNF: No hx of either. Denies needs. No needs identified. Pt Link: Discussed Pt Link. Pt is not interested in this and does not want referral made. Pt wishes to return home and states has no concerns with going home at time of discharge.? CM?to follow for home oxygen needs and any further discharge planning/needs.? Pt voices no further concerns/needs at this time.? Advised pt to ask for?CM?if any further questions/concerns/needs arise.? Voices understanding. PLAN:??Home. Follow for possible Home O2 @ d/c. Breonna BSN?RN?CM
[2023-02-12 11:30] LABS: Bedside Glucose 260 mg/dL (74-106)
--- NOTE | 2023-02-12 12:50 | CHAPLAIN ---
Type of Pastoral Visit _x__ Initial Visit ___ Follow-up Visit ___ On-call Visit ___ General Patient Visit ___ Spiritual Assessment ___ Family Conference ___ Bereavement ___ Rapid Response ___ Code Blue ___ Other (describe below) Pastoral Care Referral From _x__ Patient ___ Family ___ Nurse ___ Physician ___ Radiographic Technologist ___ Tobacco Checkout Clerk ___ Other (describe below) Sacrament/Intervention _x__ Active listening ___ Anointing ___ Roman Catholic ___ Bereavement ___ Communion ___ Amanda exploration ___ ___ Life review _x__ Prayer ___ Reconciliation ___ Sacrament of Sick _x__ Supportive presence ___ Wedding ___ Other (describe below) Pastoral Comments patient is welcoming and acknowledges that this just came on out of the blue and certainly didn't expect this; pt admits that she is going through many tests and waiting is hard; pt states that 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
--- NOTE | 2023-02-12 15:27 | PCM.CONS.C ---
Assessment & Plan Assessment/Plan (1) Acute on chronic heart failure with preserved ejection fraction (HFpEF): PLAN: Last echo appears to have been in December 2021 and it showed an EF of 50 to 50%. It is reasonable to repeat another 2D echo. Continue current medications. It is possible that her decompensation is because of A-fib with RVR. Possibly tomorrow she could be switched to p.o. Lasix. (2) Atrial fibrillation with RVR: PLAN: Responded well to IV Cardizem. We will start her on 30 mg p.o. every 6 hours of Cardizem and DC IV Cardizem. Patient is already on Eliquis. (3) Chest pain: QUALIFIERS: Chest pain type: precordial pain Qualified Code(s): R07.2 - Precordial pain PLAN: Patient did not have significant anginal symptoms when she was not in A-fib with RVR. It appears that her chest discomfort is secondary to A-fib with RVR. As an outpatient stress test could be considered. HPI Consult Data Date of Consult: 02/12/23 HPI Narrative Reason for Consultation: A-fib HPI Narrative: ALONDRA HOLLAND, is a 67 F who presents with shortness of breath and PND. She also had some chest pressure. Patient has history of NC in early 2021 that was treated with PCI of the culprit vessel followed by staged PCI of other vessels. She has history of paroxysmal A-fib and was seen in the cardiology office 2 days back. At that time the plan was to continue her beta-reji and Lasix was added as it was felt that she was volume overloaded. Patient came to the emergency room with shortness of breath and also chest heaviness. She was found to be A-fib with RVR and was started on Cardizem drip and her Lasix was switched to IV. Her symptoms have improved significantly. Her troponin has been negative. She did not have any anginal symptoms when her heart rate was under control. Review of systems: All systems reviewed. 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) Paroxysmal atrial fibrillation Positive JASMINA (antinuclear antibody) ST elevation myocardial infarction (STEMI) of inferior wall (09/07/21) Home Medications aspirin 81 mg tablet,delayed release (Adult Aspirin Regimen) 81 mg PO DAILY [facility] 02/21/22 [History Last Taken Unknown] cholecalciferol (vitamin D3) 25 mcg (1,000 unit) capsule 25 mcg PO DAILY SUPPLEMENT 02/21/22 [History Last Taken Unknown] ferrous sulfate 325 mg (65 mg iron) tablet 325 mg PO DAILY SUPPLEMENT 02/21/22 [History Last Taken Unknown] atorvastatin 80 mg tablet 80 mg PO DAILY CHOLESTEROL #90 tabs 01/19/23 [Rx Last Taken Unknown] apixaban 5 mg tablet (Eliquis) 5 mg PO BID BLOOD THINNER #60 tabs 02/10/23 [Rx Last Taken Unknown] furosemide 40 mg tablet (Lasix) 40 mg PO DAILY FLUID #30 tabs 02/10/23 [Rx Last Taken Unknown] metformin 500 mg tablet 500 mg PO Q12H DIABETES 02/10/23 [History Last Taken Unknown] sitagliptin phosphate 50 mg tablet (Januvia) 50 mg PO DAILY DIABETES 02/10/23 [History Last Taken Unknown] carvedilol 25 mg tablet 25 mg PO BID HEART 02/11/23 [History Last Taken Unknown] lisinopril 10 mg tablet 10 mg PO DAILY BLOOD PRESSURE 02/11/23 [History Last Taken Unknown] Allergy/AdvReac Type Severity Reaction Status Date / Time latex Allergy Intermediate Swelling Verified 02/11/23 13:17 Penicillins Allergy RASH Verified 02/11/23 13:17 Family History Father Heart disease CHF Surgical History History of cataract surgery History of cholecystectomy History of coronary artery stent placement (09/13/21) Social History (Updated 02/11/23 @ 16:57 by Clarisse Boyd) housing: house Smoking Status: Never smoker alcohol intake: never substance use type: does not use caffeine: Yes Type: coffee Number of servings: 2 Physical Exam Const alert and oriented x3 HEENT normocephalic Eyes no scleral icterus Resp normal respiratory effort Cardio Cardio Narrative: Irregular rhythm Psych mental status grossly normal Risk Stratification Risk Stratification Applicable: No Charges/Coding Visit Charges Inpatient E&M: 09339 Init Hosp L2 Objective Data Vital Signs: Vital Signs Temp Pulse Resp BP Pulse Ox O2 Del Method O2 Flow Rate 96.7 F L 80 21 H 124/69 H 97 Nasal Cannula 2 02/12/23 12:00 02/12/23 14:00 02/12/23 14:00 02/12/23 14:00 02/12/23 14:00 02/12/23 14:00 02/12/23 14:00 Oxygen Flow Rate (L/min) 2 Oxygen Delivery Method Nasal Cannula Weight: 166 lb 14.239 oz Body Mass Index (BMI) 26.1 Intake & Output: Intake and Output for Last 24 Hours 02/10/23 02/11/23 02/12/23 23:59 23:59 23:59 Intake Total 158.48 / 358.48 606.58 / 606.58 Output Total 700 / 700 900 / 900 Balance -541.52 / -341.52 -293.42 / -293.42 Lab / Micro Data 02/12/23 05:18 02/12/23 05:18 Labs: Laboratory Results - last 24 hr 02/11/23 16:10: Phosphorus 3.5, Magnesium 1.6, Troponin I High Sens 27 02/11/23 19:28: Troponin I High Sens 31 02/11/23 20:53: POC Glucose 174 H 02/12/23 05:18: WBC 7.7, RBC 3.51 L, Hgb 10.0 L, Hct 31.8 L, MCV 90.6, MCH 28.5, MCHC 31.4 L, RDW Std Deviation 46.5 H, RDW Coeff of Gagan 14.3, Plt Count 177, MPV 10.2, Immature Gran % (Auto) 0.400, Neut % (Auto) 62.5, Lymph % (Auto) 20.6, [place] % (Auto) 14.9 H, Eos % (Auto) 1.2, Baso % (Auto) 0.4, Absolute Neuts (auto) 4.8, Absolute Lymphs (auto) 1.59, Nucleated RBC % 0, Sodium 134 L, Potassium 4.6, Chloride 102, Carbon Dioxide 29.0, Anion Gap 3 L, BUN 26 H, Creatinine 1.80 H, Estim Creat Clear Calc 29.49, Est GFR (MDRD) Af Amer 36 L, Est GFR (MDRD) Non-Af 30 L, BUN/Creatinine Ratio 14.4, Glucose 182 H, Calcium 9.1, Triglycerides 80, Cholesterol 66, LDL Cholesterol 5, VLDL Cholesterol 16, HDL Cholesterol 45, TSH 0.52 02/12/23 07:49: POC Glucose 202 H 02/12/23 10:59: POC Glucose 260 H Cardiology Labs/Tests 02/11/23 16:10: Phosphorus 3.5, Magnesium 1.6 02/12/23 05:18: WBC 7.7, RBC 3.51 L, Hgb 10.0 L, Hct 31.8 L, MCV 90.6, MCH 28.5, MCHC 31.4 L, Plt Count 177, MPV 10.2, Immature Gran % (Auto) 0.400, Neut % (Auto) 62.5, Lymph % (Auto) 20.6, [place] % (Auto) 14.9 H, Eos % (Auto) 1.2, Baso % (Auto) 0.4, Absolute Neuts (auto) 4.8, Nucleated RBC % 0, Sodium 134 L, Potassium 4.6, Chloride 102, Carbon Dioxide 29.0, Anion Gap 3 L, BUN 26 H, Creatinine 1.80 H, Est GFR (MDRD) Af Amer 36 L, Est GFR (MDRD) Non-Af 30 L, BUN/Creatinine Ratio 14.4, Glucose 182 H, Calcium 9.1, Triglycerides 80, Cholesterol 66, LDL Cholesterol 5, VLDL Cholesterol 16, HDL Cholesterol 45 Rhythm: EKG: ECHO: Stress Test: Cardiac Cath: PCI: CT Surgery: Holter monitor: EPS: PPM: CXR: Chest CT Scan:
[2023-02-12] MEDS: dilTIAZem 30 MG Tablet PO ×2 (17:00→22:32)
[2023-02-12 17:22] LABS: Bedside Glucose 274 mg/dL (74-106)
[2023-02-12] MEDS: Atorvastatin Calcium 80 MG Tablet PO (22:32)
[2023-02-12 23:16] LABS: Bedside Glucose 199 mg/dL (74-106)
[2023-02-13] VITALS (7 sets, daily range): BP systolic 97–137; BP diastolic 52–59; PULSE 77–95; RESP 17–18; TEMP 36.8; O2SAT 90–96; BMI 26.6
[2023-02-13] MEDS: dilTIAZem 30 MG Tablet PO ×2 (04:58→12:20)
[2023-02-13 06:19] LABS: Absolute Lymphocyte Count 1.62 X10^3/uL (0.83-4.51); Absolute Neutrophil Count 5.4 X10^3/uL (2.0-7.7); Basophil# 0.05 X10^3/uL; Basophil% 0.6 % (0-1); Eosinophil# 0.14 X10^3/uL; Eosinophils% 1.7 % (0-5); Hematocrit 31.2 % (37-47); Hemoglobin 9.9 g/dL (12.0-15.0); Lymphocyte # 1.62 X10^3/ul (0.83-4.51); Lymphocyte % 19.4 % (19-41); Mean Corp Hgb Conc 31.7 g/dL (32-36); Mean Corpuscular Hgb 28.6 pg (27.0-32.0); Mean Corpuscular Volume 90.2 fL (81-99); Mean Platelet Vol. 10.8 fl (6.2-12.0); Monocyte# 1.14 X10^3/uL; Monocyte% 13.6 % (0-10); NRBC Flagged by Analyzer 0 % (0-5); Neutrophil # 5.39 X10^3/uL (2.7-7.7); Neutrophil % 64.3 % (47-70); Platelet Count 176 K/mm3 (150-450); RBC Distribution Width SD 45.9 fl (35.1-43.9); Red Blood Count 3.46 M/mm3 (4.2-5.4); White Blood Count 8.4 K/mm3 (4.4-11.0)
[2023-02-13] MEDS: Insulin Lispro 100 UNIT/ML INSULN.PEN SC ×2 (06:28→11:25)
[2023-02-13 06:57] LABS: Bedside Glucose 221 mg/dL (74-106)
[2023-02-13 07:09] LABS: Anion Gap 7 (5-15); BUN 38 mg/dL (7-18); BUN/Creat Ratio 16.7 RATIO (10-20); Calcium,Total 8.9 mg/dL (8.5-10.1); Chloride 101 mmol/L (98-107); Creatinine, Serum 2.28 mg/dL (0.55-1.02); EST Glomerular Filtration Rate 23 mL/min (>60); Est Glom Filt Rate - Afr Amer 28 mL/min (>60); Estimated Creatinine Clearance 23.28 ml/min; Glucose 194 mg/dL (74-106); Sodium Level 132 mmol/L (136-145)
[2023-02-13] MEDS: Aspirin E.C. 81 MG Tablet PO (09:00)
[2023-02-13] MEDS: APIXABAN 5 MG TABLET PO (09:00)
[2023-02-13] MEDS: Ferrous Sulfate 325 MG Tablet PO (09:00)
[2023-02-13] MEDS: Carvedilol 25 MG Tablet PO (09:00)
[2023-02-13] MEDS: LINAGLIPTIN 5 MG TABLET PO (09:00)
[2023-02-13] MEDS: Cholecalciferol (VIT D3) 25 MCG TABLET (1,000 UNITS) PO (09:00)
[2023-02-13] MEDS: 0.9% Saline Lock 10 ML Syringe IV (09:01)
[2023-02-13] MEDS: Furosemide 40 MG/4 ML Vial IV (09:01)
[2023-02-13] MEDS: Lisinopril 10 MG Tablet PO (09:01)
--- NOTE | 2023-02-13 09:06 | ECHOD_ITS ---
Reason For Study: Afib/ Flutter Procedure This was a 2D Doppler, Color Flow transthoracic echocardiogram. Exam performed portable in patient room. Left Ventricle Normal LV size. The estimated ejection fraction is 50-55 %. No evidence for diastolic dysfunction. No regional wall motion abnormalities noted. Right Ventricle Normal RV size. Normal systolic function. Atria The left atrium is moderately enlarged. The right atrium is mildly enlarged. No doppler evidence for ASD. Mitral Valve There is no mitral valve stenosis. Mild (1+) mitral valve insufficiency. Tricuspid Valve There is no tricuspid stenosis. Trivial tricuspid valve insufficiency. Pulmonary artery systolic pressure is 25 mmHg. Aortic Valve Trisinus/trileaflet aortic valve. There is no aortic stenosis. No aortic valve insufficiency. Pulmonic Valve There is no pulmonic valvular stenosis. No pulmonic valve insufficiency. Great Vessels Normal aortic root. Pericardium/Pleural No pericardial effusion. MMode/2D Measurements & Calculations LVIDd: 5.0 cm IVSd: 1.1 cm Ao root diam: 3.5 cm LVIDs: 4.0 cm LVPWd: 0.88 cm LA dimension: 4.4 cm RVDd: 4.0 cm FS: 19.4 % LAV(MOD-bp): 91.7 ml LVAd ap4: 29.3 cm2 LVAd ap2: 33.1 cm2 LAV(MOD-bp) Indexed: 48.6 ml/m2 LVLd ap4: 7.9 cm LVLd ap2: 8.1 cm LAV(MOD-sp2): 95.4 ml EDV(MOD-sp4): 89.0 ml EDV(MOD-sp2): 110.2 ml LAV(MOD-sp4): 86.9 ml EDV(sp4-el): 92.3 ml EDV(sp2-el): 115.2 ml LVAs ap4: 23.5 cm2 LVAs ap2: 25.9 cm2 LVLs ap4: 7.8 cm LVLs ap2: 7.5 cm ESV(MOD-sp4): 60.2 ml ESV(MOD-sp2): 72.9 ml ESV(sp4-el): 60.2 ml ESV(sp2-el): 75.9 ml EF(MOD-sp4): 32.4 % EF(MOD-sp2): 33.9 % EF(sp4-el): 34.8 % SV(MOD-sp4): 28.9 ml SV(MOD-sp2): 37.4 ml SV(sp4-el): 32.1 ml LA A4 area: 26.0 cm2 RA A4 area: 20.5 cm2 Doppler Measurements & Calculations MV E max irina: 96.2 cm/sec MV V2 max: 107.3 cm/sec Ao V2 max: 112.2 cm/sec MV max P.6 mmHg Ao max P.0 mmHg MV V2 mean: 56.0 cm/sec Ao V2 mean: 84.8 cm/sec MV mean P.6 mmHg Ao mean P.2 mmHg MV V2 VTI: 28.1 cm Ao V2 VTI: 22.4 cm AV (velocity ratio): 0.92 LV V1 max: 98.4 cm/sec MR max irina: 402.5 cm/sec PA V2 max: 77.9 cm/sec LV V1 max P.9 mmHg MR max P.8 mmHg LV V1 mean P.3 mmHg MR mean irina: 330.8 cm/sec LV V1 mean: 71.9 cm/sec MR mean P.8 mmHg LV V1 VTI: 20.6 cm MR VTI: 130.9 cm TR max irina: 220.1 cm/sec TR max P.4 mmHg ECHO/Echo Complete Interpretation Summary The estimated ejection fraction is 50-55 %. No evidence for diastolic dysfunction. The left atrium is moderately enlarged. The right atrium is mildly enlarged. Mild (1+) mitral valve insufficiency. Ordering Physician: Diogo Johnson Performed By: Marcus Patel [facility]
--- NOTE | 2023-02-13 09:17 | PN.HOSP_ITS ---
Reason for Visit Reason for Visit: Diagnoses Unspecified atrial fibrillation (02/11/23) Acute on chronic diastolic (congestive) heart failure (02/11/23) Precordial pain (02/11/23) Subjective Subjective Complains of ongoing chest and back pain. Worse with deep respirations. Objective Data Objective Data Vital Signs: Vital Signs Temp Pulse Resp BP Pulse Ox O2 Del Method O2 Flow Rate 36.8 C 77 18 98/59 L 95 Room Air 2 02/13/23 08:55 02/13/23 08:55 02/13/23 08:55 02/13/23 08:55 02/13/23 08:55 02/13/23 08:55 02/13/23 07:00 Oxygen Flow Rate (L/min) 2 Oxygen Delivery Method Room Air Weight: 77.1 kg Body Mass Index (BMI) 26.6 Intake & Output: Intake and Output for Last 24 Hours 02/11/23 02/12/23 02/13/23 23:59 23:59 23:59 Intake Total 158.48 / 358.48 1734.41 / 1734.41 Output Total 700 / 700 1750 / 1750 Balance -541.52 / -341.52 -15.59 / -15.59 Lab / Micro Data 02/13/23 05:38 02/13/23 05:38 Labs: Laboratory Results - last 24 hr 02/12/23 10:59: POC Glucose 260 H 02/12/23 16:49: POC Glucose 274 H 02/12/23 22:28: POC Glucose 199 H 02/13/23 05:38: WBC 8.4, RBC 3.46 L, Hgb 9.9 L, Hct 31.2 L, MCV 90.2, MCH 28.6, MCHC 31.7 L, RDW Std Deviation 45.9 H, RDW Coeff of Gagan 14.0, Plt Count 176, MPV 10.8, Immature Gran % (Auto) 0.400, Neut % (Auto) 64.3, Lymph % (Auto) 19.4, [place] % (Auto) 13.6 H, Eos % (Auto) 1.7, Baso % (Auto) 0.6, Absolute Neuts (auto) 5.4, Absolute Lymphs (auto) 1.62, Nucleated RBC % 0, Sodium 132 L, Potassium 4.0, Chloride 101, Carbon Dioxide 24.0, Anion Gap 7, BUN 38 H, Creatinine 2.28 H , Estim Creat Clear Calc 23.28, Est GFR (MDRD) Af Amer 28 L, Est GFR (MDRD) Non- Af 23 L, BUN/Creatinine Ratio 16.7, Glucose 194 H, Calcium 8.9 02/13/23 06:27: POC Glucose 221 H Physical Exam Narrative reproducible anterior chest pain at sternum and back pain. Const alert and no apparent distress HEENT head/scalp atraumatic and moist oral mucous membranes Resp normal respiratory effort, no retractions, no use of accessory muscles and clear to auscultation bilaterally Cardio S1 normal heart sound and S2 normal heart sound GI normal to inspection, nondistended, normoactive bowel sounds and soft to palpation Assessment & Plan Assessment/Plan (1) Atrial fibrillation with RVR: PLAN: Started on dilt gtt, since discontinued Anticoagulated with apixaban Continue carvedilol 25 BID Reviewed cardiology note from 02/10: Tentative plan for cardioversion. Cardiology consulted. Changing dilt to PO 30 Q6h. JACKY Johnson who came and discussed with the patient today. (2) Acute on chronic heart failure with preserved ejection fraction (HFpEF): PLAN: Her last echo in December 2021 was 50 to 55% with mildly enlarged left and right atrium suggestive of chronic HFpEF. She had echo about 2 days ago we will try to get the echo. Furosemide 40mg IV twice daily. Continue lisinopril. Already on carvedilol, continue (3) Chest pain: QUALIFIERS: Chest pain type: precordial pain Qualified Code(s): R07.2 - Precordial pain PLAN: h/o of vfib arrest. previously had ONW-BHN-Lvpl-Mid RCA w/ 3.0 x 38 mm and 3.0 x 20mm Synergy Stent 09/07/2021; SIG-ILN-[place] and Mid LAD w/ 3.5 x 18 mm and 3.0 x 18 mm overlapping [place] Stents, NARINDER-Prox and Mid LCx w/ 3.5 x 12 and 3.5 x 38 mm overlapping [place] Stents 09/13/2021 recently taken off ticagrelor 2/2 costochondritis as pain is reproducible PLAN: Plan Chronic conditions: * Diabetes mellitus type 2: Patient is on metformin and will hold it. Continue Sitagliptin. * Chronic diarrhea for 1 to 2 months: Getting outpatient work-up for differential celiac disease, Crohn's disease/ulcerative colitis or IBS. Patient has outpatient referral for GI by PCP. Symptomatic control and management. DVT prophylaxis: not indicated, already anticoagulated. Code status: Full. Discharge home.
[2023-02-13 11:56] LABS: Bedside Glucose 247 mg/dL (74-106)
--- NOTE | 2023-02-13 13:12 | DS.PCM_ITS ---
Providers Date of Admission: 02/11/23 Primary Care Physician: Dr. Sherry Galo, DO Consultations 02/12/23 09:14 Consult: Cardiology Routine Consulting Provider: Diogo Johnson Reason for Consult: afib w RVR EMERGENT Consult: No MD Notified: Yes Date Notified: 02/12/23 Time Notified: 09:14 Method of Notification: Text Reason For Visit: ATYPICAL CHEST PAIN Diagnosis Discharge Diagnosis (1) Atrial fibrillation with RVR: Status: Acute Code(s): I48.91 - Unspecified atrial fibrillation Plan: Started on dilt gtt, since discontinued Anticoagulated with apixaban Continue carvedilol 25 BID Reviewed cardiology note from 02/10: Tentative plan for cardioversion. Cardiology consulted. Changing dilt to PO [address] Johnson who came and discussed with the patient today. (2) Acute on chronic heart failure with preserved ejection fraction (HFpEF): Status: Acute Code(s): I50.33 - Acute on chronic diastolic (congestive) heart failure Plan: Her last echo in December 2021 was 50 to 55% with mildly enlarged left and right atrium suggestive of chronic HFpEF. She had echo about 2 days ago we will try to get the echo. Resume daily furosemide DC lisinopril due lower BP since starting diltiazem. Already on carvedilol, continue (3) Chest pain: Status: Acute Code(s): R07.9 - Chest pain, unspecified Qualifiers: Chest pain type: precordial pain Qualified Code(s): R07.2 - Precordial pain Plan: h/o of vfib arrest. previously had LCS-EGO-Kvou-Mid RCA w/ 3.0 x 38 mm and 3.0 x 20mm Synergy Stent 09/07/2021; GHB-UKG-Lgtb and Mid LAD w/ 3.5 x 18 mm and 3.0 x 18 mm overlapping [place] Stents, NARINDER-Prox and Mid LCx w/ 3.5 x 12 and 3.5 x 38 mm overlapping [place] Stents 09/13/2021 recently taken off ticagrelor 2 costochondritis as pain is reproducible Plan Chronic conditions: * Diabetes mellitus type 2: Patient is on metformin and will hold it. Continue Sitagliptin. * Chronic diarrhea for 1 to 2 months: Getting outpatient work-up for differential celiac disease, Crohn's disease/ulcerative colitis or IBS. Patient has outpatient referral for GI by PCP. Symptomatic control and m anagement. DVT prophylaxis: not indicated, already anticoagulated. Code status: Full. Discharge home. Medications at Discharge Home Medications aspirin 81 mg tablet,delayed release (Adult Aspirin Regimen) 81 mg PO DAILY [facility] 02/21/22 cholecalciferol (vitamin D3) 25 mcg (1,000 unit) capsule 25 mcg PO DAILY SUPPLEMENT 02/21/22 ferrous sulfate 325 mg (65 mg iron) tablet 325 mg PO DAILY SUPPLEMENT 02/21/22 atorvastatin 80 mg tablet 80 mg PO DAILY CHOLESTEROL #90 tabs 01/19/23 apixaban 5 mg tablet (Eliquis) 5 mg PO BID BLOOD THINNER #60 tabs 02/10/23 furosemide 40 mg tablet (Lasix) 40 mg PO DAILY FLUID #30 tabs 02/10/23 metformin 500 mg tablet 500 mg PO Q12H DIABETES 02/10/23 sitagliptin phosphate 50 mg tablet (Januvia) 50 mg PO DAILY DIABETES 02/10/23 carvedilol 25 mg tablet 25 mg PO BID HEART 02/11/23 diltiazem HCl 30 mg tablet 30 mg PO Q6 #120 tabs 02/13/23 Hospital Course Operations None Procedures 2-D Echocardiogram Summary of Care Provided Minutes Spent on Discharge: 40 Weight / BMI Weight Weight: 77.1 kg Body Mass Index (BMI) 26.6 ABG / Lab / Microbiology Data 02/13/23 05:38 02/13/23 05:38 Laboratory: Laboratory Results - last 24 hr 02/12/23 16:49: POC Glucose 274 H 02/12/23 22:28: POC Glucose 199 H 02/13/23 05:38: WBC 8.4, RBC 3.46 L, Hgb 9.9 L, Hct 31.2 L, MCV 90.2, MCH 28.6, MCHC 31.7 L, RDW Std Deviation 45.9 H, RDW Coeff of Gagan 14.0, Plt Count 176, MPV 10.8, Immature Gran % (Auto) 0.400, Neut % (Auto) 64.3, Lymph % (Auto) 19.4, [place] % (Auto) 13.6 H, Eos % (Auto) 1.7, Baso % (Auto) 0.6, Absolute Neuts (auto) 5.4, Absolute Lymphs (auto) 1.62, Nucleated RBC % 0, Sodium 132 L, Potassium 4.0, Chloride 101, Carbon Dioxide 24.0, Anion Gap 7, BUN 38 H, Creatinine 2.28 H , Estim Creat Clear Calc 23.28, Est GFR (MDRD) Af Amer 28 L, Est GFR (MDRD) Non- Af 23 L, BUN/Creatinine Ratio 16.7, Glucose 194 H, Calcium 8.9 02/13/23 06:27: POC Glucose 221 H 02/13/23 11:23: POC Glucose 247 H Radiography Diagnostic Testing: Radiology Impression Echocardiogram 02/13/23 09:06 Interpretation Summary The estimated ejection fraction is 50-55 %. No evidence for diastolic dysfunction. The left atrium is moderately enlarged. The right atrium is mildly enlarged. Mild (1+) mitral valve insufficiency. Ordering Physician: Diogo Johnson Performed By: Marcus Patel RCS D/C Instructions Discharge Diet: Low fat / Low cholesterol, 8 Cup Fluid Restriction and 2000 mg Sodium Diet Call your doctor if you observe: Shortness of breath, Swelling in the ankles and Chest pain Meaningful Use Info Meaningful Use Diagnoses (Choose all that apply): None applicable and CHF CHF MARIVEL/ARB ordered at discharge?: No Reason MARIVEL/ARB not ordered?: Hypotension Documented LVEF (%): 55 Discharge Plan Admission Admit Date/Time: 02/11/23 15:51 Primary Reason for Your Visit: atrial fibrillation with RVR Attending Provider: Rajesh Dhillon Primary Care Provider: Sherry Galo Consulting Providers: Seven Cam; Diogo Johnson Instructions Additional Instructions / Restrictions: You presented with atrial fibrillation with a rapid ventricular rate. Your heart rate was controlled with your carvedilol but also you were started on a diltiazem (AKA Cardizem) drip. That was changed over to oral diltiazem which we will continue with for the time being. He was seen in consultation by Dr. Johnson. Please follow-up with your enrollment consultant as outpatient. The he also had heart failure which was likely exacerbated due to your atrial fibrillation. You responded well with the diuresis and you can resume your home Lasix. He did have an echocardiogram that appears roughly the same as it was back in December 2021. You presented with chest pain. Cardiac enzymes were normal so no evidence of heart attack. Your chest pain is reproducible suggesting that this is chest wall pain, which could be more musculoskeletal and gets better with time. If you do notice any changes with the chest pain such as left-sided pain going down your left arm, notify your physician or come into the emergency room. . Discharge Orders/Prescriptions Prescriptions: New diltiazem HCl 30 mg Tablet 30 mg PO Q6 Qty: 120 0RF Continued aspirin [Adult Aspirin Regimen] 81 mg tablet,delayed release (DR/EC) 81 mg PO DAILY cholecalciferol (vitamin D3) 25 mcg (1,000 unit) capsule 25 mcg PO DAILY ferrous sulfate 325 mg (65 mg iron) tablet 325 mg PO DAILY metformin 500 mg tablet 500 mg PO Q12H Januvia 50 mg tablet 50 mg PO DAILY Eliquis 5 mg tablet 5 mg PO BID Qty: 60 12RF furosemide [Lasix] 40 mg tablet 40 mg PO DAILY Qty: 30 11RF carvedilol 25 mg tablet 25 mg PO BID atorvastatin 80 mg tablet 80 mg PO DAILY Qty: 90 3RF Discontinued lisinopril 10 mg tablet 10 mg PO DAILY Referrals / Follow Up: [facility] [Provider Group] - 03/19/23 9:15 am Sherry Galo DO [Primary Care Provider] - Within 2 Weeks Disposition Disposition (needs filled in before D/C Order can be placed): Home, Self Care Charges/Coding Visit Charges Inpatient E&M: 48454 Disch Hosp >30min
--- NOTE | 2023-02-13 13:57 | CASEMGMT ---
Patient has order for discharge. Patient does not qualify for home oxygen. RN CM in to discuss needs at discharge. Patient denies needs at discharge. Patient had no further questions or concerns at this time.
== END 2023-02-13 15:21 | disposition home or self-care (01) | DRG 291 ==
LOC: ED 16:10 → PCU 16:27
PROVIDERS: Admitting Provider Internal Medicine; Emergency Provider Emergency Medicine; PCP Family Medicine
DX: I13.0 Hypertensive heart and chronic kidney disease with heart failure and stage 1 through stage 4 chronic kidney disease, or unspecified chronic kidney disease (principal); I50.33 Acute on chronic diastolic (congestive) heart failure; N17.9 Acute kidney failure, unspecified; D63.1 Anemia in chronic kidney disease; E11.22 Type 2 diabetes mellitus with diabetic chronic kidney disease; Z79.01 Long term (current) use of anticoagulants; N18.32 Chronic kidney disease, stage 3b; I48.0 Paroxysmal atrial fibrillation; I25.5 Ischemic cardiomyopathy; I25.10 Atherosclerotic heart disease of native coronary artery without angina pectoris; E78.5 Hyperlipidemia, unspecified; K52.9 Noninfective gastroenteritis and colitis, unspecified; I25.2 Old myocardial infarction; M94.0 Chondrocostal junction syndrome [Tietze]; Z95.5 Presence of coronary angioplasty implant and graft; Z79.82 Long term (current) use of aspirin; Z79.84 Long term (current) use of oral hypoglycemic drugs; Z79.899 Other long term (current) drug therapy; Z86.74 Personal history of sudden cardiac arrest
CPT/HCPCS: 36415; 71045; 71275; 80048; 80061; 82962; 83735; 83880; 84100; 84443; 84484; 85025; 85379; 93005; 93306; 94668; 94762; 99284; Q9957; Q9967; A4216; J1940; J2405

== ENCOUNTER → 2023-07-16 | Outpatient (CLI) | payer MEDICARE, OTHER, SELFPAY ==
[2023-07-16 15:18] LABS: Absolute Lymphocyte Count 1.71 X10^3/uL (0.83-4.51); Absolute Neutrophil Count 3.6 X10^3/uL (2.0-7.7); Basophil# 0.04 X10^3/uL; Basophil% 0.7 % (0-1); Eosinophil# 0.13 X10^3/uL; Eosinophils% 2.1 % (0-5); Hematocrit 38.4 % (37-47); Lymphocyte # 1.71 X10^3/ul (0.83-4.51); Lymphocyte % 28.1 % (19-41); Mean Corp Hgb Conc 31.3 g/dL (32-36); Mean Corpuscular Hgb 27.7 pg (27.0-32.0); Mean Corpuscular Volume 88.7 fL (81-99); Mean Platelet Vol. 10.3 fl (6.2-12.0); Monocyte% 9.9 % (0-10); NRBC Flagged by Analyzer 0 % (0-5); Neutrophil # 3.59 X10^3/uL (2.7-7.7); Neutrophil % 58.9 % (47-70); Platelet Count 176 K/mm3 (150-450); RBC Distribution Width CV 14.6 % (11.6-14.6); RBC Distribution Width SD 47.6 fl (35.1-43.9); Red Blood Count 4.33 M/mm3 (4.2-5.4); White Blood Count 6.1 K/mm3 (4.4-11.0)
[2023-07-16 15:42] LABS: Vitamin D,25 Hydroxy 51.8 ng/mL
[2023-07-16 15:56] LABS: Anion Gap 4 (5-15); BUN 27 mg/dL (7-18); BUN/Creat Ratio 16.8 RATIO (10-20); Calcium,Total 9.3 mg/dL (8.5-10.1); Chloride 108 mmol/L (98-107); Creatinine, Serum 1.61 mg/dL (0.55-1.02); EST Glomerular Filtration Rate 34 mL/min (>60); Est Glom Filt Rate - Afr Amer 41 mL/min (>60); Glucose 267 mg/dL (74-106); Potassium 4.8 mmol/L (3.5-5.1); Sodium Level 137 mmol/L (136-145); Thyroid Stim Hormone (TSH) 1.27 uIU/mL (0.358-3.74)
== END | disposition home or self-care (01) ==
LOC: LAB 14:22
PROVIDERS: PCP Family Medicine; Referring Provider Nurse Practitioner Gerontology; Visit Provider Nurse Practitioner Gerontology
DX: R53.83 Other fatigue (principal); E55.9 Vitamin D deficiency, unspecified
CPT/HCPCS: 36415; 80048; 82306; 84443; 85025

== ENCOUNTER → 2023-09-01 | Outpatient (CLI) | payer MEDICARE, OTHER, SELFPAY ==
--- NOTE | 2023-09-01 09:41 | CDU_ITS ---
Reason For Study: Dizziness Rt. Velocities/BP Lt. Velocities/BP Prox CCA 75.9/15.4 cm/sec. Prox CCA 83.3/16.8 cm/sec. Mid CCA 68.3/16.3 cm/sec. Mid CCA 81.7/20.1 cm/sec. Dist CCA 65.5/20.1 cm/sec. Dist CCA 86.1/23.4 cm/sec. Prox ICA 71.8/16.8 cm/sec. Prox ICA 63.6/20.1 cm/sec. Mid ICA 75.1/20.1 cm/sec. Mid ICA 74.9/27.7 cm/sec. Dist ICA 78.4/25.6 cm/sec. Dist ICA 67.4/19.2 cm/sec. Rt. ICA/CCA = 1.15. Lt. ICA/CCA = 0.90. Prox ECA 115.6/11.5 cm/sec. Prox ECA 55.1/6.9 cm/sec. Rt. Vert. 46.6/9.7 cm/sec. Lt. Vert. 42.2/10.2 cm/sec. Right Extracranial There is homogeneous, smooth atherosclerotic plaque noted in the right common carotid artery. There is heterogeneous, irregular atherosclerotic plaque noted in the right internal carotid artery. There is heterogeneous, irregular atherosclerotic plaque noted in the right external carotid artery. Antegrade flow is noted in the right vertebral artery. Left Extracranial There is homogeneous, smooth atherosclerotic plaque noted in the left common carotid artery. There is heterogeneous, irregular atherosclerotic plaque noted in the left internal carotid artery. There is heterogeneous, irregular atherosclerotic plaque noted in the left external carotid artery. Antegrade flow is noted in the left vertebral artery. Procedure Carotid Duplex 13833. This is a Carotid Duplex examination using B-mode, color flow and specral Doppler. Exam performed in department. VL/Carotid Duplex Ultrasound Interpretation Summary Mild (<50%) stenosis right extracranial internal carotid. Mild (<50%) stenosis left extracranial internal carotid. Patent and antegrade vertebrals bilaterally. Ordering Physician: Julieth Rey Referring Physician: mariela Galo Performed By: Sheyla Mercer RVT
--- OUTSIDE RECORDS SUMMARY | 2023-09-01 10:23 | XMS RPT_ITS | CCD ---
Author Name Unknown Address [address] [place] [address] Organization [facility] Care Team Providers Care Clay Carman Name Role Phone PITO PEREZ Deana Unavailable Unavailable Percy, Sherry Unavailable Unavailabl e Iraj, Sherry C Unavailable Unavaila Adrien Bingham Unavailable Unavailable Iraj, Sherry C Unavailable Unavailable Unavailable Unavailable Unavailable Percy DO, Sherry C Primary Care Provider Percy DO, Sherry C Unavailable Dionicio LYLES, Bobyb S Unavailable Adrien Pimentel DO Unavailable Sai ORTIZ, [place] Unavailable Unavailable IRAJ, DO SHERRY Primary Care Unavail able Dr. Adrien Pimentel Attending Unavail able Dr. Adrien Pimentel Referring Unavail able IRAJ, DO SHERRY Attending Unavail able IRAJ, DO SHERRY Primary Care Unavail able IRAJ, DO SHERRY Primary Care Unavail able IRAJ, DO SHERRY Attending Unavail able IRAJ, DO SHERRY Primary Care Unavail able IRAJ, DO SHERRY Attending Unavail able IRAJ, DO SHERRY Referring Unavail able IRAJ, DO SHERRY Primary Care Unavail able IRAJ, DO SHERRY Attending Unavail able IRAJ, DO SHERRY Referring Unavail able MD ANN CARDENAS Attending Unavailable MD ANN CARDENAS Referring Unavailable IRAJ, DO SHERRY Primary Care Unavail able IRAJ, SHERRY C Primary Care Unavaila ble SHERRY GALO Referring Unavaila ble SHERRY GALO Primary Care Unavaila ble Allergies Allergy Classification Reported Allergen(s) Allergy Type Date of Onset Reaction(s) Facility (20 sources) Penicillins; Translations: [PENICILLINS] Propensity to adverse reactions to drug (disorder) [address] [place] [address] Repository (3 sources) Latex; Translations: [LATEX] Allergy to substance 2 [facility] Medications Current Medications Medication Drug Class(es) Dates Sig (Normalized) Sig (Original) apixaban 5 mg oral tablet (1 source) Factor Xa Inhibitor Start: 02-10-2023 take 1 tablet by mouth twice daily apixaban (Eliquis) 5 mg tablet Take 1 tablet (5 mg) by mouth 2 times a day. 0 02/10/2023 Active aspirin 81 mg / calcium carbonate 777 mg oral tablet (2 sources) Platelet Aggregation Inhibitor, Nonsteroidal Anti-inflammatory Drug aspirin-calcium carbonate 81 mg-300 mg calcium(777 mg) tablet Aspirin 81 MG TABS Refills: 0 0 Active atorvastatin 80 mg oral tablet (20 sources) HMG-CoA Reductase Inhibitor Start: 05-31-2020 End: 02-09-2024 take 1 tablet by mouth once daily atorvastatin (Lipitor) 80 mg tablet Indications: Hyperlipidemia, unspecified hyperlipidemia type Take 1 tablet (80 mg) by mouth once daily. 90 tablet 3 02/09/2023 02/09/2024 Active Completed/Discontinued Medications Medication Drug Class(es) Dates Sig (Normalized) Sig (Original) acetaminophen 325 mg / oxyCODONE hydrochloride 5 mg oral tablet (10 sources) Opioid Agonist Start: 09-18-2021 take 1-2 tablets by mouth every six hours as needed for pain oxyCODONE-Acetam inophen 5-325 MG Oral Tablet TAKE 1 TO 2 TABLETS EVERY 6 HOURS NEEDED FOR PAIN. Quantity: 56 Refills: 0 Ordered: 18-Sep-2021 Ann Cardenas MD Start : 18-Sep-2021 Active amiodarone hydrochloride 200 mg oral tablet (18 sources) Antiarrhythmic Start: 09-18-2021 take 1 tablet by mouth once daily Amiodarone HCl - 200 MG Oral Tablet Take 1 tablet daily Quantity: 90 Refills: 3 Ordered: 08-Oct-2021 George Schwartz MD Start : 18-Sep-2021 Active amLODIPine 5 mg oral tablet (8 sources) Dihydropyridine Calcium Channel Tracie Start: 11-07-2021 take 1 tablet by mouth once daily amLODIPine Besylate 5 MG Oral Tablet TAKE 1 TABLET DAILY. Quantity: 90 Refills: 0 Ordered: 31-Mar-2022 Percy DO, Sherry Start : 07-Nov-2021 Active Problems Active Problems Problem Classification Problem Date Documented Date Episodic/Chronic Cardiac arrest and ventricular fibrillation (20 sources) Cardiac arrest; Translations: [Cardiac arrest] Chronic Cardiac dysrhythmias (20 sources) Paroxysmal atrial fibrillation; Translations: [Atrial fibrillation] Onset: 02-08-2023 Resolved: 02-25-2023 02-09-2023 Chronic Congestive heart failure; nonhypertensive (3 sources) Decompensated chronic heart failure; Translations: [Heart failure, unspecified] Onset: 02-12-2023 Resolved: 02-25-2023 02-25-2023 Chronic Coronary atherosclerosis and other heart disease (20 sources) Coronary arteriosclerosis; Translations: [Coronary atherosclerosis of unspecified type of vessel, port heiden or graft] Onset: 05-12-2022 02-09-2023 Chronic Deficiency and other anemia (20 sources) Anemia; Translations: [Anemia, unspecified] Onset: 02-08-2023 02-09-2023 Episodic Diabetes mellitus with complications (20 sources) Chronic kidney disease stage 3; Translations: [Diabetes with renal manifestations, type II or unspecified type, not stated as uncontrolled] Onset: 02-08-2023 02-09-2023 Chronic Diabetes mellitus without complication (20 sources) Type 2 diabetes mellitus; Translations: [Diabetes mellitus without mention of complication, type II or unspecified type, not stated as uncontrolled] Onset: 02-08-2023 02-09-2023 Chronic Disorders of lipid metabolism (20 sources) Hyperlipidemia; Translations: [Other and unspecified hyperlipidemia] Onset: 02-08-2023 02-09-2023 Chronic Essential hypertension (20 sources) Benign essential hypertension; Translations: [Benign essential hypertension] Onset: 02-08-2023 02-09-2023 Chronic Genitourinary symptoms and ill-defined conditions (20 sources) Dysuria; Translations: [Microalbuminuria] Onset: 01-01-2017 02-09-2023 Episodic Immunizations and screening for infectious disease (20 sources) Anti-nuclear factor positive; Translations: [Other and unspecified nonspecific immunological findings] Onset: 02-08-2023 02-08-2023 Episodic Joint disorders and dislocations; trauma-related (20 sources) Subluxation of finger; Translations: [Closed dislocation of finger, unspecified part] Episodic Noninfectious gastroenteritis (1 source) Chronic diarrhea; Translations: [Noninfective gastroenteritis and colitis, unspecified] 02-09-2023 Episodic Nonspecific chest pain (11 sources) Chest pain; Translations: [Chest pain, unspecified] Episodic Nutritional deficiencies (20 sources) Vitamin D deficiency; Translations: [Unspecified vitamin D deficiency] Onset: 02-08-2023 02-09-2023 Chronic Other aftercare (12 sources) Post-discharge follow-up; Translations: [Other follow-up examination] 02-25-2023 Episodic Other circulatory disease (20 sources) History of clinical finding in subject; Translations: [Personal history of other diseases of circulatory system] Episodic Past or Other Problems Problem Classification Problem Date Documented Da te Episodic/Chronic Chronic ulcer of skin (20 sources) Pressure ulcer of sacral region; Translations: [Pressure ulcer, lower back] Resolved: 11-07-2021 Chronic Deficiency and other anemia (2 sources) Anemia, unspecified; Translations: [Anemia, unspecified] Onset: 02-08-2023 Episodic Inflammatory diseases of female pelvic organs (1 source) Acute vaginitis; Translations: [Acute vaginitis] Onset: 01-01-2017 Episodic Other circulatory disease (15 sources) History of cardiac arrest; Translations: [Personal history of sudden cardiac arrest] Resolved: 05-01-2022 Episodic Other injuries and conditions due to external causes (20 sources) H/O: fracture; Translations: [Personal history of traumatic fracture] Resolved: 11-07-2021 Episodic Other lower respiratory disease (1 source) Other nonspecific abnormal finding of lung field; Translations: [Other nonspecific abnormal finding of lung field] Onset: 11-24-2022 Episodic Other lower respiratory disease (1 source) Other disorders of lung; Translations: [Other disorders of lung] Onset: 05-12-2022 Episodic Other upper respiratory disease (1 source) Other specified diseases of upper respiratory tract; Translations: [Other specified diseases of upper respiratory tract] Onset: 11-24-2022 Episodic Pneumonia (except that caused by tuberculosis or sexually transmitted disease) (11 sources) Pneumonia; Translations: [Pneumonia, organism unspecified] Onset: 02-08-2023 Resolved: 02-08-2023 02-08-2023 Episodic Residual codes; unclassified (13 sources) History of thoracic surgery; Translations: [Other artificial opening status] Resolved: 05-01-2022 Episodic Unclassified (6 sources) Patient encounter status; Translations: [Screening for colon cancer] Unclassified (6 sources) History finding; Translations: [No pertinent past medical history] Unclassified (2 sources) Onset: 02-09-2023 Resolved: 02-25-2023 02-09-2023 NEGATED: Highlighted row has not occurred!Residual codes; unclassified (15 sources) Disease Episodic Results Test Name Value Interpretation Reference Range Facil ity Vital Signs Date Time Vital Sign Value Performing Clinician Facility 02-25-2023 12:28-040 Body height 172.7 cm Sherry Galo DO Work Phone: [facility] 02-25-2023 12:28-0400 Body mass index (BMI) [Ratio] 24.28 kg/m2 Sherry Wernerl DO Work Phone: [facility] 02-25-2023 12:28-0400 Body temperature 97.39 [degF] Sherry Wernerl DO Work Phone: [facility] 02-25-2023 12:28-0400 Body weight 72.44 kg Sherry Wernerl DO Work Phone: [facility] 02-25-2023 12:28-0400 Diastolic blood pressure 66 mm[Hg] Sherry Wernerl DO Work Phone: [facility] 02-25-2023 12:28-0400 Heart rate 79 /min Sherry Wernerl DO Work Phone: [facility] 02-25-2023 12:28-0400 Respiratory rate 16 /min Sherry Iraj DO Work Phone: [facility] 02-25-2023 12:28-0400 SaO2% (BldA) [Mass fraction] 99 % Sherry Percy DO Work Phone: [facility] 02-25-2023 12:28-0400 Systolic blood pressure 110 mm[Hg] Sherry Percy DO Work Phone: [facility] 02-09-2023 10:58-0400 Body height 172.7 cm Sherry Percy DO Work Phone: [facility] 02-09-2023 10:58-0400 Body mass index (BMI) [Ratio] 26.02 kg/m2 Sherry Iraj DO Work Phone: [facility] 02-09-2023 10:58-0400 Body temperature 97.7 [degF] Sherry Atkinsonmichael DO Work Phone: [facility] 02-09-2023 10:58-0400 Body weight 77.61 kg Sherry Hollingsworthhael DO Work Phone: [facility] 02-09-2023 10:58-0400 Diastolic blood pressure 69 mm[Hg] Sherry Atkinsonmichael DO Work Phone: [facility] 02-09-2023 10:58-0400 Heart rate 103 /min Sherry Iraj DO Work Phone: [facility] 02-09-2023 10:58-0400 Respiratory rate 16 /min Sherry Percy DO Work Phone: [facility] 02-09-2023 10:58-0400 SaO2% (BldA) [Mass fraction] 97 % Sherry Iraj DO Work Phone: [facility] 02-09-2023 10:58-0400 Systolic blood pressure 102 mm[Hg] Sherry Percy DO Work Phone: [facility] 05-01-2022 11:29-0400 Body mass index (BMI) [Ratio] 25.47 kg/m2 Sherry C Percy Work Phone: -[facility] Work Phone: 05-01-2022 11:29-0400 Body surface area Derived from formula 1.9 m2 Sherry C Iraj Work Phone: -[facility] Work Phone: 05-01-2022 11:29-0400 Body temperature 98.5 [degF] Sherry C Iraj Work Phone: -[facility] Work Phone: 05-01-2022 11:29-0400 Body weight 75.98 kg Sherry C Percy Work Phone: [facility] Work Phone: 05-01-2022 11:29-0400 Diastolic blood pressure 65 mm[Hg] Sherry C Iraj Work Phone: [facility] Work Phone: 05-01-2022 11:29-0400 Heart rate 61 /min Sherry C Iraj Work Phone: [facility] Work Phone: 05-01-2022 11:29-0400 Respiratory rate 16 /min Sherry C Iraj Work Phone: [facility] Work Phone: 05-01-2022 11:29-0400 SaO2% (BldA) [Mass fraction] 99 % Sherry C Iraj [facility] Work Phone: 05-01-2022 11:29-0400 Systolic blood pressure 158 mm[Hg] Sherry C Percy Work Phone: [facility] Work Phone: 03-27-2022 10:43-0400 Body mass index (BMI) [Ratio] 25.51 kg/m2 Sherry C Iraj Work Phone: [facility] Work Phone: 03-27-2022 10:43-0400 Body surface area Derived from formula 1.9 m2 Sherry C Percy Work Phone: [facility] Work Phone: 03-27-2022 10:43-0400 Body temperature 97.5 [degF] Sherry C Percy Work Phone: [facility] Work Phone: 03-27-2022 10:43-0400 Body weight 76.11 kg Sherry C Iraj Work Phone: [facility] Work Phone: 03-27-2022 10:43-0400 Diastolic blood pressure 75 mm[Hg] Sherry C Iraj Work Phone: [facility] Work Phone: 03-27-2022 10:43-0400 Heart rate 64 /min Sherry C Percy Work Phone: [facility] Work Phone: 03-27-2022 10:43-0400 Respiratory rate 14 /min Sherry C Iraj Work Phone: [facility] Work Phone: 03-27-2022 10:43-0400 SaO2% (BldA) [Mass fraction] 99 % Sherry C Iraj Work Phone: [facility] Work Phone: 03-27-2022 10:43-0400 Systolic blood pressure 170 mm[Hg] Sherry C Iraj [facility] Phone[facility] Work Phone: 11-07-2021 10:51-0400 Body height 172.72 cm Hserry C Iraj Work Phone: -[facility] Work Phone: 11-07-2021 10:51-0400 Body mass index (BMI) [Ratio] 26.15 kg/m2 Sherry C Percy Work Phone: -[facility] Work Phone: 11-07-2021 10:51-0400 Body surface area Derived from formula 1.92 m2 Sherry C Percy Work Phone: [facility] Work Phone: 11-07-2021 10:51-0400 Body temperature 97.8 [degF] Sherry C Percy Work Phone: [facility] Work Phone: 11-07-2021 10:51-0400 Body weight 78.02 kg Sherry C Iraj Work Phone: [facility] Work Phone: 11-07-2021 10:51-0400 Diastolic blood pressure 68 mm[Hg] Sherry C Iraj Work Phone: [facility] Work Phone: 11-07-2021 10:51-0400 Heart rate 74 /min Sherry C Iraj Work Phone: [facility] Work Phone: 11-07-2021 10:51-0400 Respiratory rate 16 /min Sherry C Iraj Work Phone: [facility] Work Phone: 11-07-2021 10:51-0400 SaO2% (BldA) [Mass fraction] 99 % Sherry Grewal Iraj Work Phone: [facility] Work Phone: 11-07-2021 10:51-0400 Systolic blood pressure 151 mm[Hg] Sherry Grewal Iraj Work Phone: [facility] Work Phone: 10-28-2021 10:50-0400 Body height 172.72 cm Sherry Grewal Iraj Work Phone: [facility] 3 DO Work Phone: 10-28-2021 10:50-0400 Body mass index (BMI) [Ratio] 26.4 kg/m2 Sherry Grewal Iraj Work Phone: [facility] 3 DO Work Phone: 10-28-2021 10:50-0400 Body surface area Derived from formula 1.92 m2 Sherry Grewal Iraj Work Phone: [facility] 3 DO Work Phone: 10-28-2021 10:50-0400 Body weight 78.74 kg Sherry Grewal Iraj Work Phone: [facility] 3 DO Work Phone: 10-28-2021 10:50-0400 Diastolic blood pressure 78 mm[Hg] Sherry Grewal Percy Work Phone: [facility] 3 DO Work Phone: 10-28-2021 10:50-0400 Heart rate 75 /min Sherry Grewal Percy Work Phone: [facility] 3 DO Work Phone: 10-28-2021 10:50-0400 SaO2% (BldA) [Mass fraction] 100 % Sherry Grewal Percy Work Phone: [facility] Work Phone: 10-28-2021 10:50-0400 Systolic blood pressure 160 mm[Hg] Sherry Grewal Iraj Work Phone: [facility] DO Work Phone: 09-30-2021 13:38-0400 Body height 172.72 cm Sherry Grewal Iraj Work Phone: AI-Qcwbrcycaf-Mtxrl awn Work Phone: 09-30-2021 13:38-0400 Body mass index (BMI) [Ratio] 26.2 kg/m2 Sherry Grweal Percy Work Phone: OD-Eujrhflptp-Lkuha awn Work Phone: 09-30-2021 13:38-0400 Body surface area Derived from formula 1.92 m2 Sherry Grewal Iraj Work Phone: PM-Migzayjsgi-Gqchk awn Work Phone: 09-30-2021 13:38-0400 Body weight 78.16 kg Sherry Grewal Iraj Work Phone: IW-Dqvuadcqua-Sbkph awn Work Phone: 09-30-2021 13:38-0400 Diastolic blood pressure 75 mm[Hg] Sherry Grewal Percy Work Phone: RU-Dqiyaqwuau-Tooxi awn Work Phone: 09-30-2021 13:38-0400 Heart rate 64 /min Sherry Grewal Iraj Work Phone: BR-Klikgkdvat-Ebzzu awn Work Phone: 09-30-2021 13:38-0400 SaO2% (BldA) [Mass fraction] 100 % Shrery C Percy Work Phone: GK-Nwpzbbckky-Fomjw awn Work Phone: 09-30-2021 13:38-0400 Systolic blood pressure 144 mm[Hg] Sherry C Iraj Work Phone: QW-Prfhdodksp-Qwdxa awn Work Phone: 09-18-2021 13:03-0500 Body mass index (BMI) [Ratio] 28.21 kg/m2 Sherry C Percy Work Phone: -[facility] Work Phone: 09-18-2021 13:03-0500 Body surface area Derived from formula 1.93 m2 Sherry C Iraj Work Phone: -[facility] Work Phone: 09-18-2021 13:03-0500 Body temperature 97.5 [degF] Sherry C Iraj Work Phone: -[facility] Work Phone: 09-18-2021 13:03-0500 Body weight 81.69 kg Sherry C Iraj Work Phone: -[facility] Work Phone: 09-18-2021 13:03-0500 Diastolic blood pressure 62 mm[Hg] Sherry C Percy Work Phone: -[facility] Work Phone: 09-18-2021 13:03-0500 Heart rate 67 /min Sherry C Percy Work Phone: -[facility] Work Phone: 09-18-2021 13:03-0500 Respiratory rate 12 /min Sherry C Percy Work Phone: -[facility] Work Phone: 09-18-2021 13:03-0500 SaO2% (BldA) [Mass fraction] 98 % Sherry C Iraj [facility] Work Phone: 09-18-2021 13:03-0500 Systolic blood pressure 151 mm[Hg] Sherry C Percy Work Phone: [facility] Work Phone: 06-26-2021 11:06-0500 Body height 170.18 cm Sherry C Iraj Work Phone: [facility] Work Phone: 06-26-2021 11:06-0500 Body mass index (BMI) [Ratio] 28.35 kg/m2 Sherry C Percy Work Phone: [facility] Work Phone: 06-26-2021 11:06-0500 Body surface area Derived from formula 1.94 m2 Sherry C Iraj Work Phone: [facility] Work Phone: 06-26-2021 11:06-0500 Body temperature 97.6 [degF] Sherry C Percy Work Phone: [facility] Work Phone: 06-26-2021 11:06-0500 Body weight 82.1 kg Sherry C Percy Work Phone: [facility] Work Phone: 06-26-2021 11:06-0500 Diastolic blood pressure 70 mm[Hg] Sherry C Percy Work Phone: [facility] Work Phone: 06-26-2021 11:06-0500 Heart rate 69 /min Sherry C Iraj Work Phone: [facility] Work Phone: 06-26-2021 11:06-0500 Respiratory rate 16 /min Sherry Galo Work Phone: [facility] Work Phone: 06-26-2021 11:06-0500 SaO2% (BldA) [Mass fraction] 98 % Sherry Galo Work Phone: [facility] Work Phone: 06-26-2021 11:06-0500 Systolic blood pressure 155 mm[Hg] Sherry Galo Work Phone: [facility] Work Phone: 10-15-2020 15:23-0400 BMI (Body Mass Index) 28.54 kg/m2 Sherry Gaol [facility] Work Phone: 10-15-2020 15:23-0400 Body Temperature 97.5 [degF] Sherry Iraj [facility] 3 DO Work Phone: 10-15-2020 15:23-0400 Body weight 82.65 kg Sherry Iraj [facility] 3 DO Work Phone: 10-15-2020 15:23-0400 BP Diastolic 82 mm[Hg] Sherry Galo [facility] DO Work Phone: Encounters Encounter Date Encounter Type Care Provider Facility Start: 06-25-2023 End: 06-26-2023 ambulatory SHERRY GALO [facility] Start: 02-25-2023 End: 02-25-2023 Office outpatient visit 25 minutes Sherry Galo DO Work Phone: [facility] Procedures Date Procedure Procedure Detail Performing Clinician Start: 06-25-2023 FOLLOW UP IN ADVANCE D PRIMARY CARE - PCP SHERRY IRAJ Start: 06-25-2023 BI MAMMO BILATERAL S CREENING TOMOSYNTHESIS SHERRY IRAJ Start: 02-09-2023 ALBUMIN, URINE RANDOM K BRENT ATKINSONMICHAEL Start: 02-09-2023 CBC W Auto Different ial panel - Blood SHERRY IRAJ Start: 02-09-2023 Comprehensive metabo lic 1999 panel - Serum or Plasma SHERRY IRAJ Start: 02-09-2023 Cyanocobalamin vitamin b-12 SHERRY IRAJ Start: 02-09-2023 Ferritin [Mass/volum e] in Serum or Plasma SHERRY IRAJ Start: 02-09-2023 FOLATE SHERRY IRAJ Start: 02-09-2023 IRON AND TIBC SHERRY ATKINSONMICHAEL Start: 02-09-2023 VITAMIN D 25-HYDROXY,TOTAL SHERRY ATKINSONMICHAEL Start: 02-09-2023 Hemoglobin glycosylated a1c Sherry Hollingsworthhael DO Work Phone: Start: 02-09-2023 Ecg routine ecg w/le ast 12 lds w/i&r Sherry Atkinsonmichael DO Work Phone: Start: 05-01-2022 Lipid 1996 panel - S alem or Plasma Sherry Hollingsworthhael DO Work Phone: Start: 01-28-2022 Follow-up visit Start: 12-30-2021 Echocardiography Judie ine C Iraj Work Phone: Start: 12-05-2021 Mammography Sherry Hollingsworthhael DO Work Phone: Start: 10-15-2020 Assay of blood/uric acid Sherry Hollingsworthhael Start: 10-15-2020 Basic metabolic 1998 panel - Serum or Plasma Sherry Hollingsworthhael Start: 10-15-2020 Comprehensive metabo lic 1999 panel Sherry Percy Start: 10-15-2020 Protein total xcpt refractometry urine Sherry Hollingsworthhael Start: 10-15-2020 Ultrasound Kidney Bilateral Sherry Atkinsonmichael Start: 10-15-2020 Urnls dip stick/tabl et rgnt auto w/o microscopy Sherry Galo Start: 09-12-2020 Fluorescent nonnfct agt antb screen ea antibody Sherry Galo Start: 09-12-2020 Noninvasive colorect al cancer DNA and occult blood screening [Presence] in Stool Sherry Galo Start: 09-12-2020 Ultrasound Kidney Bilateral Sherry Galo Cataract surgery Sherry Grewal armsonu Cholecystectomy Sherry meyers Percutaneous translu mikey coronary angioplasty Sherry Galo Work Phone: Plan of Treatment Date Care Activity Detail Author Start: 05-22-2032 DTaP/Tdap/Td Vaccine s (2 - Td or Tdap) DTaP/Tdap/Td Vaccines (2 - Td or Tdap) [facility] Start: 02-11-2024 Medicare Annual Well ness Visit Medicare Annual Wellness Visit (AWV) [facility] Start: 02-10-2024 Creatinine measurement Creatinine Le irina [facility] Start: 02-10-2024 Potassium measurement Potassium Leve l [facility] Start: 05-12-2023 Hemoglobin A1c measurement Diabetes: Hemoglobin A1C [facility] Start: 05-12-2023 End: 05-12-2023 Patient encounter procedure 05/12/2023 9:30 AM EDT Office Visit [facility] [address] [place] [address] Sherry Galo DO [address] [facility] [address] [place], [place] [id number] [facility] Start: 05-01-2023 Lipid panel Lipid Panel [facility] Start: 03-13-2023 Influenza vaccination Influenza Vacc ine (#1) [facility] Start: 02-09-2023 End: 02-10-2024 25-hydroxyvitamin D3 [Mass/volume] in Serum or Plasma [facility] Work Phone: Immunizations Immunization Date Immunization Notes Care Provider Fa cility 05-22-2022 tetanus toxoid, reduced diphtheria toxoid, and acellular pertussis vaccine, adsorbed Sherry Galo Work Phone: [facility] Work Phone: Payers Date Payer Category Payer Medicare MEDICARE MEDICAR E PART A AND B [id number] 2020-Present [address] [place] [address] [id number] 2020 Medicare [id number] 2018 [facility] Health [facility] [id number] 2018-Present [address] [place] [address] [id number] 2018 Private Health Insurance [id number] 1955 Unknown [id number] 1955 Unknown [id number] 1955 Unknown [id number] 1955 Unknown [id number] 1955 Unknown [id number] 1955 Unknown [id number] 1955 Unknown [id number] 1955 Unknown [id number] Private Health Insurance [id number] Unknown Social History Date Type Detail Facility Start: 02-09-2023 End: 02-25-2023 No alcohol use No alcohol use [facility] Work Phone: Medical Equipment Procedure Code Equipment Code Equipment Origin al Text Equipment Identifier Dates Blood Glucose Te st In Vitro Strip TEST ONCE DAILY. Quantity: 1 Refills: 3 Percy DO, Sherry Start : 06-Jun-2020 Active 100 Strip Box Start: 06-06-2020 Lancets TEST ONC E DAILY Quantity: 1 Refills: 3 Percy DO, Sherry Start : 06-Jun-2020 Active 100 Unit Box Start: 06-06-[address] In Vitro Strip TEST ONCE DAILY. Quantity: 1 Refills: 3 Iraj DO, Sherry Start : 06-Jun-2020 Active 100 Strip Box Start: 06-06-2020 Lancets TEST ONC E DAILY Quantity: 1 Refills: 3 Percy DO, Sherry Start : 06-Jun-2020 Active 100 Unit Box Start: 06-06-[address] In Vitro Strip TEST ONCE DAILY. Quantity: 1 Refills: 3 Percy DO, Sherry Start : 06-Jun-2020 Active 100 Strip Box Start: 06-06-2020 Lancets TEST ONC E DAILY Quantity: 1 Refills: 3 Percy DO, Sherry Start : 06-Jun-2020 Active 100 Unit Box Start: 06-06-[address] In Vitro Strip TEST ONCE DAILY. Quantity: 1 Refills: 3 Percy DO, Sherry Start : 06-Jun-2020 Active 100 Strip Box Start: 06-06-2020 Lancets TEST ONC E DAILY Quantity: 1 Refills: 3 Percy DO, Sherry Start : 06-Jun-2020 Active 100 Unit Box Start: 06-06-[address] In Vitro Strip TEST ONCE DAILY. Quantity: 1 Refills: 3 Percy DO, Sherry Start : 06-Jun-2020 Active 100 Strip Box Start: 06-06-2020 Lancets TEST ONC E DAILY Quantity: 1 Refills: 3 Iraj DO, Sherry Start : 06-Jun-2020 Active 100 Unit Box Start: 06-06-[address] In Vitro Strip TEST ONCE DAILY. Quantity: 1 Refills: 3 Percy Judie LOPEZine Start : 06-Jun-2020 Active 100 Strip Box Start: 06-06-2020 Lancets TEST ONC E DAILY Quantity: 1 Refills: 3 Judie Galo DOine Start : 06-Jun-2020 Active 100 Unit Box Start: 06-06-2020 TEST ONCE DAILY. [id number] Start: 06-06-2020 Functional Status Date Assessment Result Facility 06-26-2021 IO PHQ9 IO PHQ9 0 [facility] Work Phone: NEGATED: Highlighted row Functional performance Functional status health issues are not documented Disease [facility] Work Phone: Mental Status Date Assessment Result Facility NEGATED: Highlighted row Cognitive function [Interpretation] Cognitive status health issues are not documented Disease [facility] Work Phone: Clinical Notes 04-10-2018 to 02-25-2023 Assessment & Plan Note - Sherry Galo DO - 02/25/2023 12:55 PM EDTAssessment & Plan Note - Sherry Galo DO - 02/25/2023 12:55 PM EDTPatient Instructions Note Date & Type Note Facility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 medications (OTC or prescription) ? * no * what makes symptoms worse? * n/a * has pt been seen recently for this problem ( within past 2-3 weeks) ? * no * if yes- where? * n/a * by who? * n/a * what treatment was provided? * n/a * has patient traveled recently? * no * if so, where? * n/a * smoker? no * if yes- how many ppd and for how many years? n/a * if former smoker- when did pt quit ? n/a * has pt had COVID vaccine ? * no * BP elevated- on amlodipine and lisinopril - compliant with meds * not taking any OTC cold meds * no escudero or visual changes * denies chest pain * feels SOB really only with Coughing [facility] Work Phone: Reason for referral (narrative)* Consultation (Routine) - Authorized Specialty Diagnoses / Procedures Referred By Contac t Referred To Contact Primary Care Diagnoses Controlled type 2 diabetes mellitus without complication, without long-term current use of insulin ([facility]/HCC) Procedures Follow Up In Advanced Primary Care - PCP - Established Sherry Galo DO [address] [facility], [address] [place] [address] Referral ID Status Reason Start Date Expiration Date V isits Requested Visits Authorized [id number] Authorized 02/09/2023 08/08/2023 1 1 * Consultation (Routine) - Authorized Specialty Diagnoses / Procedures Referred By Contac t Referred To Contact Gastroenterology Diagnoses Chronic diarrhea Procedures NV OFFICE/OUTPATIENT NEW HIGH MDM 60-74 MINUTES Sherry Galo DO [address] [facility] [place] [address] Referral ID Status Reason Start Date Expiration Date Visits Requested Visits Authorized [id number] Authorized Specialty Services Required 02/09/2023 08/08/2023 1 1 * Imaging (Routine) - Authorized Specialty Diagnoses / Procedures Referred By Contac t Referred To Contact Radiology Diagnoses Dyspnea on exertion Procedures XR chest 2 views Sherry Galo DO [address] [facility], [address] [place] [address] Referral ID Status Reason Start Date Expiration Date Visits Requested Visits Authorized [id number] Authorized Perform Procedure 02/09/2023 08/08/2023 1 1 * Cardiovascular (Routine) - Authorized Specialty Diagnoses / Procedures Referred By Contac t Referred To Contact Diagnoses Dyspnea on exertion Procedures ECG 12 lead (Clinic Performed) Sherry Galo DO [address] [facility], [address] [place] [address] Referral ID Status Reason Start Date Expiration Date V isits Requested Visits Authorized [id number] Authorized 02/09/2023 08/08/2023 1 1 * Imaging (Routine) - Authorized Specialty Diagnoses / Procedures Referred By Mey guardado Referred To Contact Radiology Diagnoses Screening mammogram, encounter for Procedures BI mammo bilateral screening tomosynthesis Sherry Galo DO [address] [facility], [address] [place] [address] Referral ID Status Reason Start Date Expiration Date Visits Requested Visits Authorized [id number] Authorized Perform Procedure 02/09/2023 08/08/2023 1 1 [facility] Work Phone: Summary Purpose Family History No Family History Records Found Mother Name Dates Details Family history of (7 99.9, R99) Status:Active Family history of Alzheimer' s disease(V17.2, Z82.0) Status:Active Father Name Dates Details Family history of (7 99.9, R99) Status:Active Family history of congestive heart failure(V17.49, Z82.49) Status:Active Mother Name Dates Details Family history of (7 99.9, R99) Status:Active Family history of Alzheimer' s disease(V17.2, Z82.0) Status:Active Father Name Dates Details Family history of (7 99.9, R99) Status:Active Family history of congestive heart failure(V17.49, Z82.49) Status:Active Mother Name Dates Details Family history of (7 99.9, R99) Status:Active Family history of Alzheimer' s disease(V17.2, Z82.0) Status:Active Father Name Dates Details Family history of (7 99.9, R99) Status:Active Family history of congestive heart failure(V17.49, Z82.49) Status:Active Mother Name Dates Details Family history of (7 99.9, R99) Status:Active Family history of Alzheimer' s disease(V17.2, Z82.0) Status:Active Father Name Dates Details Family history of (7 99.9, R99) Status:Active Family history of congestive heart failure(V17.49, Z82.49) Status:Active Mother Name Dates Details Family history of (7 99.9, R99) Status:Active Family history of Alzheimer' s disease(V17.2, Z82.0) Status:Active Father Name Dates Details Family history of (7 99.9, R99) Status:Active Family history of congestive heart failure(V17.49, Z82.49) Status:Active Mother Name Dates Details Family history of (7 99.9, R99) Status:Active Family history of Alzheimer' s disease(V17.2, Z82.0) Status:Active Father Name Dates Details Family history of (7 99.9, R99) Status:Active Family history of congestive heart failure(V17.49, Z82.49) Status:Active Unknown Family Member Name Dates Details : Mother, Father Status:Active Family history of Alzheimer' s disease: Mother(V17.2, Z82.0) Status:Active Family history of congestive heart failure: Father(V17.49, Z82.49) Status:Active Unknown Family Member Name Dates Details : Mother, Father Status:Active Family history of Alzheimer' s disease: Mother(V17.2, Z82.0) Status:Active Family history of congestive heart failure: Father(V17.49, Z82.49) Status:Active Unknown Family Member Name Dates Details : Mother, Father Status:Active Family history of Alzheimer' s disease: Mother(V17.2, Z82.0) Status:Active Family history of congestive heart failure: Father(V17.49, Z82.49) Status:Active Unknown Family Member Name Dates Details : Mother, Father Status:Active Family history of Alzheimer' s disease: Mother(V17.2, Z82.0) Status:Active Family history of congestive heart failure: Father(V17.49, Z82.49) Status:Active Unknown Family Member Name Dates Details : Mother, Father Status:Active Family history of Alzheimer' s disease: Mother(V17.2, Z82.0) Status:Active Family history of congestive heart failure: Father(V17.49, Z82.49) Status:Active Unknown Family Member Name Dates Details : Mother, Father Status:Active Family history of Alzheimer' s disease: Mother(V17.2, Z82.0) Status:Active Family history of congestive heart failure: Father(V17.49, Z82.49) Status:Active Unknown Family Member Name Dates Details : Mother, Father Status:Active Family history of Alzheimer' s disease: Mother(V17.2, Z82.0) Status:Active Family history of congestive heart failure: Father(V17.49, Z82.49) Status:Active Unknown Family Member Name Dates Details : Mother, Father Status:Active Family history of congestive heart failure: Father(V17.49, Z82.49) Status:Active Family history of Alzheimer' s disease: Mother(V17.2, Z82.0) Status:Active Unknown Family Member Name Dates Details : Mother, Father Status:Active Family history of Alzheimer' s disease: Mother(V17.2, Z82.0) Status:Active Family history of congestive heart failure: Father(V17.49, Z82.49) Status:Active Unknown Family Member Name Dates Details : Mother, Father Status:Active Family history of Alzheimer' s disease: Mother(V17.2, Z82.0) Status:Active Family history of congestive heart failure: Father(V17.49, Z82.49) Status:Active Unknown Family Member Name Dates Details : Mother, Father Status:Active Family history of congestive heart failure: Father(V17.49, Z82.49) Status:Active Family history of Alzheimer' s disease: Mother(V17.2, Z82.0) Status:Active Unknown Family Member Name Dates Details : Mother, Father Status:Active Family history of Alzheimer' s disease: Mother(V17.2, Z82.0) Status:Active Family history of congestive heart failure: Father(V17.49, Z82.49) Status:Active Unknown Family Member Name Dates Details : Mother, Father Status:Active Family history of congestive heart failure: Father(V17.49, Z82.49) Status:Active Family history of Alzheimer' s disease: Mother(V17.2, Z82.0) Status:Active Unknown Family Member Name Dates Details : Mother, Father Status:Active Family history of congestive heart failure: Father(V17.49, Z82.49) Status:Active Family history of Alzheimer' s disease: Mother(V17.2, Z82.0) Status:Active Unknown Family Member Name Dates Details : Mother, Father Status:Active Family history of Alzheimer' s disease: Mother(V17.2, Z82.0) Status:Active Family history of congestive heart failure: Father(V17.49, Z82.49) Status:Active Unknown Family Member Name Dates Details : Mother, Father Status:Active Family history of Alzheimer' s disease: Mother(V17.2, Z82.0) Status:Active Family history of congestive heart failure: Father(V17.49, Z82.49) Status:Active Unknown Family Member Name Dates Details : Mother, Father Status:Active Family history of Alzheimer' s disease: Mother(V17.2, Z82.0) Status:Active Family history of congestive heart failure: Father(V17.49, Z82.49) Status:Active Unknown Family Member Name Dates Details : Mother, Father Status:Active Family history of Alzheimer' s disease: Mother(V17.2, Z82.0) Status:Active Family history of congestive heart failure: Father(V17.49, Z82.49) Status:Active Unknown Family Member Name Dates Details : Mother, Father Status:Active Family history of Alzheimer' s disease: Mother(V17.2, Z82.0) Status:Active Family history of congestive heart failure: Father(V17.49, Z82.49) Status:Active Unknown Family Member Name Dates Details : Mother, Father Status:Active Family history of congestive heart failure: Father(V17.49, Z82.49) Status:Active Family history of Alzheimer' s disease: Mother(V17.2, Z82.0) Status:Active Unknown Family Member Name Dates Details : Mother, Father Status:Active Family history of Alzheimer' s disease: Mother(V17.2, Z82.0) Status:Active Family history of congestive heart failure: Father(V17.49, Z82.49) Status:Active Unknown Family Member Name Dates Details : Mother, Father Status:Active Family history of Alzheimer' s disease: Mother(V17.2, Z82.0) Status:Active Family history of congestive heart failure: Father(V17.49, Z82.49) Status:Active Unknown Family Member Name Dates Details : Mother, Father Status:Active Family history of congestive heart failure: Father(V17.49, Z82.49) Status:Active Family history of Alzheimer' s disease: Mother(V17.2, Z82.0) Status:Active Unknown Family Member Name Dates Details : Mother, Father Status:Active Family history of Alzheimer' s disease: Mother(V17.2, Z82.0) Status:Active Family history of congestive heart failure: Father(V17.49, Z82.49) Status:Active Unknown Family Member Name Dates Details : Mother, Father Status:Active Family history of Alzheimer' s disease: Mother(V17.2, Z82.0) Status:Active Family history of congestive heart failure: Father(V17.49, Z82.49) Status:Active Unknown Family Member Name Dates Details : Mother, Father Status:Active Family history of Alzheimer' s disease: Mother(V17.2, Z82.0) Status:Active Family history of congestive heart failure: Father(V17.49, Z82.49) Status:Active Unknown Family Member Name Dates Details : Mother, Father Status:Active Family history of Alzheimer' s disease: Mother(V17.2, Z82.0) Status:Active Family history of congestive heart failure: Father(V17.49, Z82.49) Status:Active Unknown Family Member Name Dates Details : Mother, Father Status:Active Family history of Alzheimer' s disease: Mother(V17.2, Z82.0) Status:Active Family history of congestive heart failure: Father(V17.49, Z82.49) Status:Active Unknown Family Member Name Dates Details : Mother, Father Status:Active Family history of Alzheimer' s disease: Mother(V17.2, Z82.0) Status:Active Family history of congestive heart failure: Father(V17.49, Z82.49) Status:Active Unknown Family Member Name Dates Details : Mother, Father Status:Active Family history of Alzheimer' s disease: Mother(V17.2, Z82.0) Status:Active Family history of congestive heart failure: Father(V17.49, Z82.49) Status:Active Unknown Family Member Name Dates Details : Mother, Father Status:Active Family history of Alzheimer' s disease: Mother(V17.2, Z82.0) Status:Active Family history of congestive heart failure: Father(V17.49, Z82.49) Status:Active Unknown Family Member Name Dates Details : Mother, Father Status:Active Family history of congestive heart failure: Father(V17.49, Z82.49) Status:Active Family history of Alzheimer' s disease: Mother(V17.2, Z82.0) Status:Active Unknown Family Member Name Dates Details : Mother, Father Status:Active Family history of congestive heart failure: Father(V17.49, Z82.49) Status:Active Family history of Alzheimer' s disease: Mother(V17.2, Z82.0) Status:Active Unknown Family Member Name Dates Details : Mother, Father Status:Active Family history of Alzheimer' s disease: Mother(V17.2, Z82.0) Status:Active Family history of congestive heart failure: Father(V17.49, Z82.49) Status:Active Unknown Family Member Name Dates Details : Mother, Father Status:Active Family history of congestive heart failure: Father(V17.49, Z82.49) Status:Active Family history of Alzheimer' s disease: Mother(V17.2, Z82.0) Status:Active Advance Directives No Advanced Directives Records FoundNo Advanced Directives Records FoundNo Advanced Directives Records FoundNo Advanced Directives Records Found Chief Complaint * follow up * PT declines the flu shot today * PT stated she hurt her thumb 6 weeks ago and it is still popping * ppsv23 - Declines today * PT is here for a f/u on medication * PT declines the flu shot today and did not get COVID vaccines [facility] 1 YEAR FOLLOW-UP- CKD, DM2, HTN * LAB REVIEW 10/25/2021 Establish carept presents for cough, congestion* PT is here for a f/u on meds * PT declines the flu shot Additional Source Comments INFORMATION SOURCE (unrecogn ized section and content) DATE CREATED AUTHOR AUTHOR'S ORGANIZ ATION 05/05/2022 [employer] DATE CREATED AUTHOR AUTHOR'S ORGANIZ ATION 02/27/2023 [facility] DATE CREATED AUTHOR AUTHOR'S ORGANIZ ATION 07/04/2023 [facility] Reason for Visit (unrecogniz ed section and content) Specialty Diagnoses / Procedures Referred By Mey t Referred To Contact Diagnoses Dyspnea on exertion Procedures ECG 12 lead (Clinic Performed) Sherry Galo DO [address] [facility] [place] [address] Referral ID Status Reason Start Date Expiration Date V isits Requested Visits Authorized [id number] Authorized 02/09/2023 08/08/2023 1 1 Reason Comments Hospital Follow-up Care Teams (unrecognized sec tion and content) Clay Carman Relationship Specialty Start Date End Date Sherry Galo DO [address] [facility], [facility] [address] [place], [place] [address] PCP - General 05/29/20 Sherry Galo DO [address] [facility], [facility] [address] [place], [place] [address] PCP - MSSP ACO Attributed Provider 10/11/21 Bobby Greenberg MD [address] [facility] [address] [place], [place] [id number] Referring Physician Cardiology 02/08/23 Adrien Pimentel DO [address] [facility] [address] [place] [address] Nephrology 02/08/23 Milli Gibbs, neck band makerCable Weaver 02/16/23 FOR RECORDS PERTAINING TO PATIENTS WHO ARE OR HAVE BEEN ENROLLED IN A CHEMICAL DEPENDENCY/SUBSTANCEABUSE PROGRAM, SOME INFORMATION MAY BE OMITTED. This clinical summary was aggregated from multiple sources. Caution should be exercised in using it in the provision of clinical care. This summary normalizes information from multiple sources, and as a consequence, information in this document may materially change the coding, format and clinical context of patient data. In addition, data may be omitted in some cases. CLINICAL DECISIONS SHOULD BE BASED ON THE PRIMARY CLINICAL RECORDS. [facility] HospitalAn[facility]. provides no warranty or guarantee of the accuracy or completeness of information in this document.
== END | disposition home or self-care (01) ==
PROVIDERS: PCP Family Medicine; Referring Provider Nurse Practitioner Gerontology; Visit Provider Nurse Practitioner Gerontology
DX: R42 Dizziness and giddiness (principal)
CPT/HCPCS: 93880

== ENCOUNTER 2024-10-31 10:25 | Day surgery (SDC) | payer MEDICARE, OTHER, SELFPAY ==
--- NOTE | 2024-09-13 16:17 | PCM.HP.BLA ---
History and Physical Date of Admission: 10/03/24 This is a 68-year-old lady with a hx of presenting with a V. fib arrest on a trip to [place] from [place]. She underwent CPR and did regain ROSC. An EKG done demonstrated ST elevation in the inferior leads and the patient was sent for urgent cardiac catheterization which demonstrated a totally occluded right coronary artery, left anterior descending artery with a 90 to 95% stenosis, left circumflex artery with a mid 80% stenosis and an ejection fraction of 40 to 45%. She underwent PCI to the mid right coronary artery as well as the proximal right coronary artery. She underwent staged procedure with a drug-eluting stent placed to the proximal and mid left anterior descending artery in September 2021 as well as the proximal and mid circumflex artery at that time with overlapping stents stents. She also had developed a right pneumothorax requiring 2 chest tubes which was felt to be traumatic. She also did develop atrial fibrillation and was placed on amiodarone. In addition during the procedure she did have recurrent ventricular fibrillation requiring 5-6 defibrillation attempts as well as IV bolus and IV administration of amiodarone, lidocaine and an intra-aortic balloon pump placed for hemodynamic instability. She was placed on medication which she appears to have done well on. Her last echocardiogram demonstrated an ejection fraction of 50 to 55% from December 2021 with basal inferior lateral hypokinesis and moderate mitral regurgitation. She did have a 48-hour Holter monitor performed which demonstrated no evidence of atrial fibrillation and no pauses were noted. Patient presented to the emergency room on 02/11/2023 with complaints of chest pain and shortness of breath. She was noted to be in atrial fibrillation with RVR. She was placed on a Cardizem drip, and admitted for further evaluation. Patient's Echocardiogram on 02/13/2023 demonstrated an ejection fraction of 50 to 55%. She was later discharged home on carvedilol 25mg twice daily, and Eliquis 5mg twice daily. She was instructed to follow up with cardiology for possible cardioversion. This was discussed with her she initially was not too keen but is willing to undergo that now. From a cardiac standpoint, the patient is doing well. She does acknowledge occasional palpitations. She denies chest pain, pressure or heaviness. She does have SOB with exertion-running up stairs/cleaning. She denies Orthopnea, and PND. She does not have bleeding issues; no blood in urine, stool or nosebleeds. She denies any decrease in energy level, myalgias, or claudication. She does edema, or sudden weight gain. She denies dizziness, lightheadedness, syncopal or near syncopal episodes, and headaches. 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) Cardiac arrest with ventricular fibrillation (09/07/21) Atherosclerosis of coronary artery without angina pectoris Surgical History History of cataract surgery History of cholecystectomy History of coronary artery stent placement (09/13/21) Family History Father Heart disease CHF Social History housing: house Smoking Status: Never smoker alcohol intake: never substance use type: does not use caffeine: Yes Type: coffee Number of servings: 2 ROS Const Const: Positive for fatigue (comes and goes); Negative for weakness, headache(s), daytime sleepiness or difficulty sleeping ENT ENT: Negative for headache(s), dizziness or Nosebleed/epistaxis Cardio Chest Pain: No Palpitations: Yes (sometimes mostly at night) Edema: None Resp Respiratory: Positive for SOB with activity (when experiencing palps ); Negative for SOB at rest, SOB orthopnea\SOB lying down or Cough GI GI: Positive for nausea (with palps); Negative vomiting or heartburn Neuro Neuro: Negative for dizziness, lightheadedness, near syncope, headache(s) or weakness Endo Endo: Positive for fatigue (comes and goes) Cardiology Exam Const Appearance: cooperative, healthy appearing, comfortable and no acute distress Nutritional Appearance: average body habitus and well nourished Orientation: alert, awake and oriented x3 Head Head: normal to inspection Ears: hearing grossly normal bilaterally Nose: external nose normal Face and Sinus: face symmetric Mouth: moist mucous membranes Eyes General: appearance normal, both eyes and all related structures Eyelids: eyelids normal EOM: EOM intact bilaterally Neck Neck: normal visual inspection and no JVD Carotids: normal carotid upstroke Chest Chest inspection: normal inspection of the chest, symmetric chest movement and normal respiratory effort; Negative cough Auscultation: Bilateral: Diminished Lung Sounds Cardio Rhythm: irregularly irregular Heart sounds: S1 normal and S2 normal; Negative rub, gallop or murmur GI GI: normal to inspection Neuro General: patient alert, patient awake, patient oriented x3 and CN's II-XI intact bilaterally Skin Skin: no rashes or lesions noted Extremities Pulses: Normal: Right Posterior Tibial Pulse, Left Posterior Tibial Pulse, Right Radial Pulse and Left Radial Pulse Lower Extremity Edema: None: Bilateral Psych Psychological: normal affect Supplemental Info Supplemental Information Echocardiogram from 02/13/2023: Interpretation Summary The estimated ejection fraction is 50-55 %. No evidence for diastolic dysfunction. The left atrium is moderately enlarged. The right atrium is mildly enlarged. Mild (1+) mitral valve insufficiency. ECHOCARDIOGRAM 12/30/21: CONCLUSIONS 1. The left ventricular systolic function is low normal with a 50-55% estimated ejection fraction. 2. Basal inferolateral segment is abnormal. 3. Moderate mitral valve regurgitation. CARDIAC CATHETERIZATION 09/07/21: IMPRESSION: 1. Elective PCI: STEMI s/p PCI of RCA with 2 NARINDER stents on 09/07/20. Now staged PCI of residual calcified 95% stenosis of LAD and severe 80% stenosis of LCX. 2. INTERVENTION 1: Successful complex PTCA and 2 NARINDER stents placed in proximal and mid LAD with 3.5 x 18mm Marlon and 3.0 x 38mm Marlon overlapping stents, post dilated ostial stent up to 20 an with no residual stenosis. Excellent results with CÉSAR 3 flow and no complications. 3. INTERVENTION 2: Successful complex PTCA and 2 NARINDER stents placed in proximal and mid LCX with 3.5 x 12mm Marlon and 3.5 x 38mm Marlon overlapping stents with no residual stenosis. Excellent results with CÉSAR 3 flow and no complications. 48HR HOLTER MONITOR 04/17/22: Normal Sinus Rhythm. Avg HR was 63 BPM. Minimum HR was 49 BPM at 0944 D2, sinus bradycardia. Maximum HR was 89 BPM at 0014 D1, sinus rhythm. Total 483 premature ventricular ectopic isolated beats (0.3%), 1 interpolated beat. Total 16 premature supraventricular ectopic isolated beats. 1 atrial run consisting of 3 beats with a maximum HR of 121 BPM at 1218 D2. No atrial fibrillation noted. Carotid duplex 09/02/2023: Interpretation Summary Mild (<50%) stenosis right extracranial internal carotid. Mild (<50%) stenosis left extracranial internal carotid. Patent and antegrade vertebrals bilaterally. Assessment & Plan Assessment/Plan (1) Paroxysmal atrial fibrillation: (2) History of coronary artery stent placement: (3) Ischemic cardiomyopathy: (4) Essential hypertension: (5) Hyperlipidemia: QUALIFIERS: Hyperlipidemia type: mixed hyperlipidemia Qualified Code(s): E78.2 - Mixed hyperlipidemia PLAN: Plan (1) Paroxysmal atrial fibrillation: Status: Resolved Comment: Post cardiac arrest 09/07/2021 Plan: She has a history of paroxysmal atrial fibrillation. This seems to be more persistent. Her most recent echocardiogram from 02/13/2023 demonstrated an ejection fraction of 50 to 55%, and moderately enlarged left atrium and mildly enlarged right atrium. She appears to be in an irregularly irregular rhythm on exam today. Her ventricular heart rate is well controlled at this time. A Holter monitor was ordered at a previous office visit to assess her atrial fibrillation burden; she did not follow through with this. Her [id number] score is 6 (age, gender, HTN, DM, CHF, ME). Cardioversion was discussed, and she is willing to undergo this. She is not sure whether she wants to try sotalol therapy though. I did suggest to her that if this is unsuccessful she may be a good candidate for an atrial fibrillation ablation. She may be willing to consider this. (2) History of coronary artery stent placement: Status: Chronic Comment: PJV-JRF-Somw-Mid RCA w/ 3.0 x 38 mm and 3.0 x 20mm Synergy Stent 09/07/2021; SYM-AOH-Dvka and Mid LAD w/ 3.5 x 18 mm and 3.0 x 18 mm overlapping [place] Stents, NARINDER-Prox and Mid LCx w/ 3.5 x 12 and 3.5 x 38 mm overlapping [place] Stents 09/13/2021 Plan: Patient has a history of coronary artery disease with stent placement in September 2021. She appears stable at this time, and denies any recent symptoms or events. She will continue with her current medical therapy, along with aggressive risk factor and lifestyle modifications. She will continue to monitor for any concerning symptoms. (3) Ischemic cardiomyopathy: Status: Chronic Plan: Patient has a history of ischemic cardiomyopathy. Her most recent echocardiogram from 02/13/2023 demonstrated an ejection fraction of 50 to 55%. This has improved. She appears stable at this time, and denies any recent symptoms or events. She will continue carvedilol 25 mg twice daily, Lasix 40 mg every other day, and Jardiance 10 mg daily. We will continue to monitor for any concerning symptoms. (4) Essential hypertension: Status: Chronic Plan: Patient has a history of hypertension. Her blood pressure is well controlled at this time. She will continue with her current medical therapy, along with monitoring her blood pressures at home. She will notify our office of any persistently elevated or low blood pressure readings. (5) Hyperlipidemia: Status: Chronic Qualifiers: Hyperlipidemia type: mixed hyperlipidemia Qualified Code(s): E78.2 - Mixed hyperlipidemia Plan: Patient has a history of hyperlipidemia. Her most recent lipid panel from 02/12/2023: Cholesterol 66, HDL 45, LDL 5, triglycerides 80. She will continue atorvastatin 80 mg daily, along with aggressive risk factor and lifestyle modifications. Would like to obtain a fasting lipid and liver profile to reassess this.
--- NOTE | 2024-09-28 09:30 | RAD_ITS ---
EXAM: XR Chest, 2 Views CLINICAL INDICATION: FOR DCCV TECHNIQUE: Frontal and lateral views of the chest. COMPARISON: No relevant prior studies available. FINDINGS: LUNGS AND PLEURAL SPACES: Unremarkable. No consolidation. No pneumothorax. HEART: Unremarkable. No cardiomegaly. MEDIASTINUM: Unremarkable. Normal mediastinal contour. BONES/JOINTS: Unremarkable. No acute fracture. RAD/Chest PA and Lateral IMPRESSION: No acute cardiopulmonary process. Reading Location: [facility]
[2024-09-28 10:47] LABS: AST(SGOT) 25 U/L (<=31); Alanine Aminotransfer ALT/SGPT 18 U/L (<=34); Alkaline Phosphatase 67 U/L (35-104); Anion Gap 12 (5-15); BUN 26 mg/dL (4-19); BUN/Creat Ratio 19.1 RATIO (10-20); Bilirubin, Direct 0.47 mg/dL (0.00-0.30); Calcium,Total 9.7 mg/dL (7.6-11.0); Carbon Dioxide 20.8 mmol/L (21.0-32.0); Chloride 104 mmol/L (98-108); Cholesterol 87 mg/dL (<=200); Creatinine, Serum 1.34 mg/dL (0.70-1.20); EST Glomerular Filtration Rate 43 (>60); Globulin 3.8 g/dL (2.2-4.2); Glucose 197 mg/dL (70-99); High Density Lipoprotein 51 mg/dL; Low Density Lipoprotein Calc. 25 mg/dL; Potassium 4.9 mmol/L (3.3-5.1); Protein, Total 7.8 g/dL (5.9-8.4); Sodium Level 137 mmol/L (133-145); Total Bilirubin 0.89 mg/dL (0.00-1.30); Triglycerides 58 mg/dL; Very Low Density Lipoprotein 12 mg/dL (5-40); cholesterol:hdl ratio screen 1.71
[2024-10-26 10:30] LABS: Anion Gap 11 (5-15); BUN 21 mg/dL (4-19); BUN/Creat Ratio 14.5 RATIO (10-20); Calcium,Total 9.7 mg/dL (7.6-11.0); Carbon Dioxide 22.6 mmol/L (21.0-32.0); Chloride 104 mmol/L (98-108); Creatinine, Serum 1.43 mg/dL (0.70-1.20); EST Glomerular Filtration Rate 40 (>60); Glucose 204 mg/dL (70-99); Potassium 4.7 mmol/L (3.3-5.1); Sodium Level 137 mmol/L (133-145)
[2024-10-28 07:26] VITALS: BMI 24.4
--- NOTE | 2024-10-31 10:35 | EKG12_ITS ---
Test Reason : DCCV Blood Pressure : */* mmHG Vent. Rate : 119 BPM Atrial Rate : 25 BPM P-R Int : * ms QRS Dur : 98 ms QT Int : 364 ms P-R-T Axes : * 1 35 degrees QTcB Int : 512 ms Atrial fibrillation Low voltage QRS Abnormal ECG When compared with ECG of 11-Feb-2023 17:14, No significant change was found Confirmed by CAIN LYLES, BOBBY ([id number]), slot editor MINE WALLIS ([id number]) on 11/02/2024 9:52:15 AM Referred By: Bobby Greenberg Confirmed By: BOBBY GREENBERG MD
--- NOTE | 2024-10-31 12:35 | PCM.OP.PRO2 ---
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 Patient was seen by Dr. Johnson of the critical care division. Informed consent was obtained. Anterior-posterior pads were applied. The patient was administered 40 mg of intravenous propofol. 200 J of synchronized biphasic DC cardioversion energy were applied with prompt reversal to sinus rhythm. Frequent premature atrial complexes were noted as well as occasional premature ventricular complexes. Patient however was noted to be in predominantly sinus rhythm. Will give intravenous amiodarone 150 mg x 1 Procedure findings: Successful DC cardioversion from atrial fibrillation to sinus rhythm Continue current medications DC diltiazem Amiodarone 200 mg a day for 1 month only Follow-up as per office protocol
--- NOTE | 2024-10-31 13:08 | PCM.OP.PRO2 ---
Procedures Pulmonary Pulmonary Procedures /Diagnostic Testin Con Sedation Non-invasive Procedural Procedure Information Date of Procedure: 10/31/24 Description of procedure: CONSCIOUS SEDATION REPORT DATE OF SERVICE: October 31, 2024 BRIEF HISTORY OF PRESENT ILLNESS: The patient is a 69-year-old female who presented to [facility] for an elective outpatient cardioversion due to underlying atrial fibrillation. The patient denied any prior anesthetic complications. She has never previously undergone a cardioversion. The patient has no pre-existing lung conditions. She has never been diagnosed with obstructive sleep apnea. The patient is systemically anticoagulated on Eliquis. Her last surface echocardiogram demonstrated an ejection fraction of 50 to 55%. PHYSICAL EXAMINATION: VITAL SIGNS: Reviewed and were acceptable. GENERAL: The patient is a female, in no apparent distress, speaking in full sentences. HEENT: Normocephalic, atraumatic. Mucous membranes are moist and pink. Good mouth opening noted. Trachea is midline. CHEST: S1, S2 irregularly irregular. No murmurs, rubs or gallops were noted. LUNGS: Clear to auscultation bilaterally without appreciable wheezes, rales or rhonchi. ABDOMEN: Soft, nontender, nondistended. Positive bowel sounds. EXTREMITIES: There is no clubbing, cyanosis or edema. ASA Class: II DESCRIPTION OF PROCEDURE: After confirmation of informed consent, the patient's anesthesia plan was reviewed in detail. Propofol was chosen. Risks and benefits were reviewed and the patient agreed to proceed. At 1225, the patient was given 40 mg of propofol. The patient achieved an appropriate level of sedation and was given a 200 joule synchronized cardioversion by Dr. Greenberg at the bedside. This was successful in achieving normal sinus rhythm. The patient was monitored until 1238, at which time she reached her baseline mental status and function. The patient tolerated the procedure well. COMPLICATIONS: None ESTIMATED BLOOD LOSS: None RECOMMENDATIONS: Okay to recover in usual fashion.
== END 2024-10-31 14:15 | disposition home or self-care (01) ==
PROVIDERS: Physician Assistant Medical; PCP Family Medicine; Referring Provider Internal Medicine Cardiovascular Disease; Visit Provider Internal Medicine Cardiovascular Disease
DX: I48.0 Paroxysmal atrial fibrillation (principal); I50.9 Heart failure, unspecified; I13.0 Hypertensive heart and chronic kidney disease with heart failure and stage 1 through stage 4 chronic kidney disease, or unspecified chronic kidney disease; N18.9 Chronic kidney disease, unspecified; E78.2 Mixed hyperlipidemia; I25.5 Ischemic cardiomyopathy; I34.0 Nonrheumatic mitral (valve) insufficiency; I25.2 Old myocardial infarction; Z95.5 Presence of coronary angioplasty implant and graft; Z79.01 Long term (current) use of anticoagulants; Z79.82 Long term (current) use of aspirin; Z79.84 Long term (current) use of oral hypoglycemic drugs; Z79.899 Other long term (current) drug therapy; Z82.49 Family history of ischemic heart disease and other diseases of the circulatory system
CPT/HCPCS: 36415; 71046; 80048; 80061; 80076; 92960; 93005

== ENCOUNTER → 2024-12-20 | Outpatient (CLI) | payer MEDICARE, OTHER, SELFPAY ==
[2024-12-20 10:47] LABS: Absolute Lymphocyte Count 0.86 X10^3/uL (0.83-4.51); Absolute Neutrophil Count 3.6 X10^3/uL (2.0-7.7); Basophil# 0.04 X10^3/uL; Basophil% 0.8 % (0-1); Eosinophil# 0.17 X10^3/uL; Eosinophils% 3.3 % (0-5); Hematocrit 38.6 % (37-47); Lymphocyte # 0.86 X10^3/ul (0.83-4.51); Lymphocyte % 16.6 % (19-41); Mean Corp Hgb Conc 31.1 g/dL (32-36); Mean Corpuscular Hgb 28.2 pg (27.0-32.0); Mean Corpuscular Volume 90.6 fL (81-99); Mean Platelet Vol. 9.5 fl (6.2-12.0); Monocyte# 0.45 X10^3/uL; Monocyte% 8.7 % (0-10); NRBC Flagged by Analyzer 0 % (0-5); Neutrophil # 3.64 X10^3/uL (2.7-7.7); Neutrophil % 70.4 % (47-70); Platelet Count 149 K/mm3 (150-450); RBC Distribution Width CV 15.9 % (11.6-14.6); RBC Distribution Width SD 51.6 fl (35.1-43.9); Red Blood Count 4.26 M/mm3 (4.2-5.4); White Blood Count 5.2 K/mm3 (4.4-11.0)
[2024-12-20 11:19] LABS: Microalbumin,Random Urine 24.6 mg/L (NO RANGE EST.); Microalbumin:Creatinine Ratio 670.3 mg/g CRE
[2024-12-20 11:31] LABS: AST(SGOT) 33 U/L (<=31); Alanine Aminotransfer ALT/SGPT 24 U/L (<=34); Alkaline Phosphatase 79 U/L (35-104); Anion Gap 11 (5-15); BUN 22 mg/dL (4-19); BUN/Creat Ratio 13.5 RATIO (10-20); Calcium,Total 9.4 mg/dL (7.6-11.0); Chloride 103 mmol/L (98-108); Cholesterol 94 mg/dL (<=200); Creatinine, Serum 1.63 mg/dL (0.70-1.20); EST Glomerular Filtration Rate 34 (>60); Globulin 3.9 g/dL (2.2-4.2); Glucose 265 mg/dL (70-99); High Density Lipoprotein 51 mg/dL; Low Density Lipoprotein Calc. 32 mg/dL; Potassium 5.1 mmol/L (3.3-5.1); Protein, Total 7.9 g/dL (5.9-8.4); Sodium Level 136 mmol/L (133-145); Total Bilirubin 1.05 mg/dL (0.00-1.30); Triglycerides 53 mg/dL; Very Low Density Lipoprotein 11 mg/dL (5-40); cholesterol:hdl ratio screen 1.83
== END | disposition home or self-care (01) ==
LOC: LAB 10:02
PROVIDERS: PCP Family Medicine; Referring Provider Family Medicine; Visit Provider Family Medicine
DX: E11.22 Type 2 diabetes mellitus with diabetic chronic kidney disease (principal); N18.32 Chronic kidney disease, stage 3b
CPT/HCPCS: 36415; 80053; 80061; 82043; 82570; 83036; 85025

== ENCOUNTER 2025-01-03 10:26 | Day surgery (SDC) | payer MEDICARE, OTHER, SELFPAY ==
[2024-12-29 11:24] LABS: Anion Gap 10 (5-15); BUN 18 mg/dL (4-19); BUN/Creat Ratio 12.2 RATIO (10-20); Calcium,Total 9.1 mg/dL (7.6-11.0); Carbon Dioxide 22.1 mmol/L (21.0-32.0); Chloride 103 mmol/L (98-108); Creatinine, Serum 1.49 mg/dL (0.70-1.20); EST Glomerular Filtration Rate 38 (>60); Glucose 315 mg/dL (70-99); Potassium 5.3 mmol/L (3.3-5.1); Sodium Level 136 mmol/L (133-145)
[2025-01-02 11:35] VITALS: BMI 24.5
--- NOTE | 2025-01-03 12:30 | PCM.OP.PRO2 ---
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 Informed consent was obtained. Anterior-posterior pads were applied. Patient was seen by Dr. Johnson of the critical care division. 40 mg of intravenous propofol was administered and 200 J of DC cardioversion were applied there was reversal to sinus rhythm but patient subsequently degenerated back into atrial fibrillation. It was decided that the patient needed a higher loading dose of amiodarone over a longer period of time and then will attempt to DC cardioversion again. Procedure findings: Unsuccessful DC cardioversion from atrial fibrillation to sinus rhythm.
--- NOTE | 2025-01-03 12:45 | PRO.PCM_ITS ---
Procedures Pulmonary Pulmonary Procedures /Diagnostic Testin Con Sedation Non-invasive Procedural Procedure Information Date of Procedure: 01/03/25 Description of procedure: CONSCIOUS SEDATION REPORT DATE OF SERVICE: January 03, 2025 BRIEF HISTORY OF PRESENT ILLNESS: The patient is a 69-year-old female who presented to [facility] to undergo an elective outpatient cardioversion due to underlying atrial fibrillation. The patient did undergo a prior cardioversion in October 2024, during which time, propofol was utilized for sedation purposes. The patient denied any prior anesthetic complications. She has no pre-existing lung conditions. She has never been diagnosed with obstructive sleep apnea. The patient is systemically anticoagulated on Eliquis. Her last surface echocardiogram demonstrated an ejection fraction of 50 to 55%. PHYSICAL EXAMINATION: VITAL SIGNS: Reviewed and were acceptable. GENERAL: The patient is a female, in no apparent distress, speaking in full sentences. HEENT: Normocephalic, atraumatic. Mucous membranes are moist and pink. Good mouth opening noted. Trachea is midline. CHEST: S1, S2 irregularly irregular. No murmurs, rubs or gallops were noted. LUNGS: Clear to auscultation bilaterally without appreciable wheezes, rales or rhonchi. ABDOMEN: Soft, nontender, nondistended. Positive bowel sounds. EXTREMITIES: There is no clubbing, cyanosis or edema. ASA Class: II DESCRIPTION OF PROCEDURE: After confirmation of informed consent, the patient's anesthesia plan was reviewed in detail. Propofol was chosen. Risks and benefits were reviewed and the patient agreed to proceed. At 1207, the patient was given 40 mg of propofol. The patient achieved an appropriate level of sedation and was given a 200 joule synchronized cardioversion by Dr. Greenberg at the bedside. Unfortunately, the cardioversion was unsuccessful in restoring normal sinus rhythm. The patient was monitored until 1222, at which time she reached her baseline mental status and function. The patient tolerated the procedure well. COMPLICATIONS: None ESTIMATED BLOOD LOSS: None RECOMMENDATIONS: Okay to recover in usual fashion.
== END 2025-01-03 12:55 | disposition home or self-care (01) ==
PROVIDERS: Physician Assistant Medical; PCP Family Medicine; Referring Provider Internal Medicine Cardiovascular Disease; Visit Provider Internal Medicine Cardiovascular Disease
DX: I48.19 Other persistent atrial fibrillation (principal); Z79.01 Long term (current) use of anticoagulants; I25.10 Atherosclerotic heart disease of native coronary artery without angina pectoris; I25.5 Ischemic cardiomyopathy; I10 Essential (primary) hypertension; I25.2 Old myocardial infarction; E78.2 Mixed hyperlipidemia; Z95.5 Presence of coronary angioplasty implant and graft; Z79.82 Long term (current) use of aspirin; Z79.899 Other long term (current) drug therapy; Z86.74 Personal history of sudden cardiac arrest
CPT/HCPCS: 36415; 80048; 92960; 93005

== ENCOUNTER → 2025-01-20 | Outpatient (CLI) | payer MEDICARE, OTHER, SELFPAY ==
--- NOTE | 2025-01-20 10:02 | ECHOD_ITS ---
Reason For Study Reason For Study: AFIB/FLUTTER Left Ventricle Normal LV size. The left ventricular ejection fraction is 30 %. There is moderate global hypokinesis of the left ventricle. Right Ventricle Normal RV size. Normal systolic function. Atria The left atrium is moderately enlarged. The right atrium is mildly enlarged. Mitral Valve Bileaflet diffuse mitral valve thickening. Mild-Moderate (1-2+) eccentric mitral valve insufficiency. Tricuspid Valve Normal tricuspid valve. Mild to moderate (1-2+) tricuspid valve insufficiency. Pulmonary artery systolic pressure is 44 mmHg. Aortic Valve Trisinus/trileaflet aortic valve. Trivial aortic valve insufficiency. Pulmonic Valve Normal pulmonic valve. Great Vessels Normal aortic root. The pulmonary artery is normal size. Inferior vena cava collapse with respiration. Pericardium/Pleural No pericardial effusion. MMode/2D Measurements & Calculations LVIDd: 5.4 cm IVSd: 0.64 cm Ao root diam: 3.3 cm LVIDs: 4.7 cm LVPWd: 0.78 cm RVDd: 3.2 cm FS: 12.7 % LAV(MOD-bp): 96.2 ml LVAd ap4: 30.8 cm2 LVAd ap2: 30.8 cm2 LAV(MOD-bp) Indexed: 53.0 ml/m2 LVLd ap4: 8.3 cm LVLd ap2: 8.4 cm LAV(MOD-sp2): 95.4 ml EDV(MOD-sp4): 95.4 ml EDV(MOD-sp2): 94.4 ml LAV(MOD-sp4): 97.1 ml EDV(sp4-el): 96.6 ml EDV(sp2-el): 95.4 ml LVAs ap4: 25.1 cm2 LVAs ap2: 24.7 cm2 LVLs ap4: 7.9 cm LVLs ap2: 7.7 cm ESV(MOD-sp4): 67.1 ml ESV(MOD-sp2): 65.6 ml ESV(sp4-el): 67.8 ml ESV(sp2-el): 67.5 ml EF(MOD-sp4): 29.7 % EF(MOD-sp2): 30.5 % EF(sp4-el): 29.9 % SV(MOD-sp4): 28.4 ml SV(MOD-sp2): 28.8 ml SV(sp4-el): 28.9 ml SI(MOD-sp4): 15.6 ml/m2 SI(MOD-sp2): 15.9 ml/m2 LA A4 area: 27.4 cm2 LA dimension(2D): 5.0 cm RA A4 area: 23.4 cm2 TAPSE: 1.4 cm Doppler Measurements & Calculations MV E max omari: 82.5 cm/sec Lat Peak E' Omari: 11.4 cm/sec Med Peak E' Omari: 7.9 cm/sec E/E' lat: 7.2 E/E' med: 10.5 MV V2 max: 104.1 cm/sec Ao V2 max: 73.7 cm/sec LV V1 max: 66.8 cm/sec MV max P.3 mmHg Ao max P.2 mmHg LV V1 max P.8 mmHg MV V2 mean: 58.9 cm/sec Ao V2 mean: 56.8 cm/sec LV V1 mean P.98 mmHg MV mean P.6 mmHg Ao mean P.4 mmHg LV V1 mean: 46.6 cm/sec MV V2 VTI: 18.3 cm Ao V2 VTI: 13.5 cm LV V1 VTI: 13.1 cm AV (velocity ratio): 0.97 MR max omari: 484.5 cm/sec PA V2 max: 57.7 cm/sec TR max omari: 322.2 cm/sec MR max P.9 mmHg PA V2 mean: 41.0 cm/sec TR max P.5 mmHg MR mean omari: 390.4 cm/sec MR mean P.2 mmHg MR VTI: 160.2 cm ECHO/Echo Complete Interpretation Summary Normal LV size. The left ventricular ejection fraction is 30 %. The left atrium is moderately enlarged. The right atrium is mildly enlarged. There is moderate global hypokinesis of the left ventricle. Mild-Moderate (1-2+) eccentric mitral valve insufficiency. Ordering Physician: Tali Taylor Referring Physician: Sherry Galo Performed By: Dominique Howe RDCS, RVT
== END | disposition home or self-care (01) ==
PROVIDERS: PCP Family Medicine; Referring Provider Physician Assistant Medical; Visit Provider Physician Assistant Medical
DX: I48.19 Other persistent atrial fibrillation (principal)
CPT/HCPCS: 93306

== ENCOUNTER 2025-02-08 10:25 | Day surgery (SDC) | payer MEDICARE, OTHER, SELFPAY ==
[2025-01-19 16:06] LABS: Anion Gap 12 (5-15); BUN 23 mg/dL (4-19); BUN/Creat Ratio 15.2 RATIO (10-20); Calcium,Total 9.4 mg/dL (7.6-11.0); Carbon Dioxide 22.2 mmol/L (21.0-32.0); Chloride 104 mmol/L (98-108); Glucose 211 mg/dL (70-99); Potassium 4.6 mmol/L (3.3-5.1)
[2025-02-03 11:05] LABS: Anion Gap 10 (5-15); BUN 21 mg/dL (4-19); BUN/Creat Ratio 13.8 RATIO (10-20); Calcium,Total 9.1 mg/dL (7.6-11.0); Carbon Dioxide 22.8 mmol/L (21.0-32.0); Chloride 105 mmol/L (98-108); Glucose 217 mg/dL (70-99); Potassium 4.8 mmol/L (3.3-5.1)
[2025-02-03 11:13] LABS: Prothrombin Time (Protime)PT. 19.5 SECONDS (11.7-14.9)
--- NOTE | 2025-02-08 10:28 | ECHOTEE_ITS ---
Reason For Study Reason For Study: ATRIAL FIBRILLATION Medication QUINTEN probe 6VT-D (SN [id number]) passed without difficulty. No complications were noted. Cetacaine Topical [place] given X3 orally. Versed 2 mg given slow IVP. Fentanyl 50 mcg given slow IVP. Performed a rapid injection of agitated mix of 9 cc saline and 1cc air to assess for atrial septal defect. Left Ventricle Normal LV size. The left ventricular ejection fraction is 30 %. There is moderate to severe global hypokinesis of the left ventricle. Right Ventricle Normal RV size. Normal systolic function. Atria Bubble contrast study is negative for PFO/ASD. The left atrium is moderately enlarged. No thrombus is detected in the left atrial appendage. The right atrium is moderately enlarged. Mitral Valve Normal mitral valve. Mild-Moderate (1-2+) mitral valve insufficiency. Tricuspid Valve Normal tricuspid valve. Aortic Valve Normal aortic valve. Trisinus/trileaflet aortic valve. Pulmonic Valve Normal pulmonic valve. Vessels Normal aortic root. The pulmonary artery is normal size. Pericardium No pericardial effusion. ECHO/Echo Transesophageal (QUINTEN) Interpretation Summary The left ventricular ejection fraction is 30 %. There is moderate to severe global hypokinesis of the left ventricle. Normal LV size. Bubble contrast study is negative for PFO/ASD. No thrombus is detected in the left atrial appendage. Ordering Physician: Tali Taylor Referring Physician: DEYA GIBBS Performed By: Carol Dutton RDCS
--- NOTE | 2025-02-08 12:00 | EKG12_ITS ---
Test Reason : POST CARDIOVERSION Blood Pressure : */* mmHG Vent. Rate : 48 BPM Atrial Rate : 48 BPM P-R Int : 198 ms QRS Dur : 100 ms QT Int : 536 ms P-R-T Axes : 89 -2 59 degrees QTcB Int : 478 ms Sinus bradycardia Low voltage QRS Borderline ECG When compared with ECG of 08-Feb-2025 11:14, MANUAL COMPARISON REQUIRED DATA IS UNCONFIRMED Confirmed by CAIN LYLES, BOBBY ([id number]), city editor MEHNAZ CADENA ([id number]) on 02/09/2025 6:31:55 AM Referred By: Bobby Greenberg Confirmed By: BOBBY GREENBERG MD
--- NOTE | 2025-02-08 12:39 | PRO.PCM_ITS ---
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 Johnson of the critical care division. Informed consent was obtained. Anterior posterior pads were applied. The patient was administered 6 mg of intravenous etomidate and then 200 J of synchronized DC biphasic cardioversion energy were applied with prompt reversal to sinus rhythm. Patient tolerated the procedure well. Procedure findings: Successful DC cardioversion from atrial fibrillation to sinus rhythm. Continue as per office protocol.
--- NOTE | 2025-02-08 12:52 | PRO.PCM_ITS ---
Procedures Pulmonary Pulmonary Procedures /Diagnostic Testin Con Sedation Non-invasive Procedural Procedure Information Date of Procedure: 02/08/25 Description of procedure: CONSCIOUS SEDATION REPORT DATE OF SERVICE: February 08, 2025 BRIEF HISTORY OF PRESENT ILLNESS: The patient is a 69-year-old female who presented to [facility] to undergo an elective outpatient cardioversion due to underlying atrial fibrillation. The patient did undergo a transesophageal echocardiogram earlier today, which demonstrated an ejection fraction of 30%. In addition, the patient did undergo a prior cardioversion in December 2024, which was unsuccessful in restoring normal sinus rhythm. The patient denied any prior anesthetic complications. She is systemically anticoagulated on Eliquis. She has never been diagnosed with obstructive sleep apnea. PHYSICAL EXAMINATION: VITAL SIGNS: Reviewed and were acceptable. GENERAL: The patient is a female, in no apparent distress, speaking in full sentences. HEENT: Normocephalic, atraumatic. Mucous membranes are moist and pink. Good mouth opening noted. Trachea is midline. Good neck mobility. CHEST: S1, S2 irregularly irregular. No murmurs, rubs or gallops were noted. LUNGS: Clear to auscultation bilaterally without appreciable wheezes, rales or rhonchi. ABDOMEN: Soft, nontender, nondistended. Positive bowel sounds. EXTREMITIES: There is no clubbing, cyanosis or edema. ASA Class: II DESCRIPTION OF PROCEDURE: After confirmation of informed consent, the patient's anesthesia plan was reviewed in detail. Etomidate was chosen. Risks and benefits were reviewed and the patient agreed to proceed. At 1230, the patient was given 6 mg of etomidate. The patient achieved an appropriate level of sedation and was given a 200 joule synchronized cardioversion by Dr. Greenberg at the bedside. This was successful in achieving normal sinus rhythm. The patient was monitored until 1245, at which time she reached her baseline mental status and function. The patient tolerated the procedure well. COMPLICATIONS: None ESTIMATED BLOOD LOSS: None RECOMMENDATIONS: Okay to recover in usual fashion.
== END 2025-02-08 13:30 | disposition home or self-care (01) ==
PROVIDERS: Physician Assistant Medical; PCP Family Medicine; Referring Provider Internal Medicine Cardiovascular Disease; Visit Provider Internal Medicine Cardiovascular Disease
DX: I48.19 Other persistent atrial fibrillation (principal); I25.10 Atherosclerotic heart disease of native coronary artery without angina pectoris; I25.5 Ischemic cardiomyopathy; I10 Essential (primary) hypertension; I25.2 Old myocardial infarction; E78.2 Mixed hyperlipidemia; Z95.5 Presence of coronary angioplasty implant and graft; Z79.01 Long term (current) use of anticoagulants; Z79.82 Long term (current) use of aspirin; Z79.899 Other long term (current) drug therapy; Z86.74 Personal history of sudden cardiac arrest
CPT/HCPCS: 36415; 80048; 85610; 92960; 93005; 93312; 93320; 93325; A4216

== ENCOUNTER → 2025-02-27 | Outpatient (CLI) | payer MEDICARE, OTHER, SELFPAY | END | disposition home or self-care (01) | LOC: PSN 08:05 | PROVIDERS: PCP Family Medicine; Referring Provider Nurse Practitioner Family; Visit Provider Nurse Practitioner Family | DX: R00.1 Bradycardia, unspecified (principal) | CPT/HCPCS: 93225; 93226 ==

== ENCOUNTER → 2025-06-01 | Outpatient (CLI) | payer MEDICARE, OTHER, SELFPAY ==
--- NOTE | 2025-06-01 09:53 | ECHOD_ITS ---
Reason For Study Reason For Study: CHF Procedure This was a 2D Doppler, Color Flow transthoracic echocardiogram. Exam performed in department. Left Ventricle Normal LV size. The left ventricular ejection fraction is 50 %. Left ventricular systolic function is lower limits of normal. No regional wall motion abnormalities noted. Right Ventricle Normal RV size. Normal systolic function. Atria Normal left atrium. Normal right atrium. Mitral Valve Bileaflet diffuse mitral valve thickening. Mild (1+) eccentric mitral valve insufficiency. Tricuspid Valve Normal tricuspid valve. Mild (1+) tricuspid valve insufficiency. Pulmonary artery systolic pressure is 45 mmHg. Aortic Valve Normal aortic valve. Trisinus/trileaflet aortic valve. Pulmonic Valve Normal pulmonic valve. Great Vessels Normal aortic root. The pulmonary artery is normal size. Inferior vena cava collapse with respiration. Pericardium/Pleural No pericardial effusion. MMode/2D Measurements & Calculations LVIDd: 5.3 cm IVSd: 0.71 cm Ao root diam: 3.4 cm LVIDs: 4.1 cm LVPWd: 0.82 cm RVDd: 3.8 cm FS: 21.3 % LAV(MOD-bp): 72.1 ml LVAd ap4: 36.0 cm2 LVAd ap2: 35.3 cm2 LAV(MOD-bp) Indexed: 39.7 ml/m2 LVLd ap4: 8.6 cm LVLd ap2: 8.5 cm LAV(MOD-sp2): 58.7 ml EDV(MOD-sp4): 119.8 ml EDV(MOD-sp2): 118.7 ml LAV(MOD-sp4): 78.9 ml EDV(sp4-el): 127.5 ml EDV(sp2-el): 123.5 ml LVAs ap4: 23.3 cm2 LVAs ap2: 22.6 cm2 LVLs ap4: 7.5 cm LVLs ap2: 7.6 cm ESV(MOD-sp4): 58.5 ml ESV(MOD-sp2): 58.0 ml ESV(sp4-el): 61.3 ml ESV(sp2-el): 57.6 ml EF(MOD-sp4): 51.2 % EF(MOD-sp2): 51.2 % EF(sp4-el): 51.9 % SV(MOD-sp4): 61.3 ml SV(MOD-sp2): 60.8 ml SV(sp4-el): 66.2 ml SI(MOD-sp4): 33.8 ml/m2 SI(MOD-sp2): 33.5 ml/m2 LA A4 area: 25.0 cm2 LA dimension(2D): 4.6 cm RA A4 area: 17.6 cm2 TAPSE: 2.9 cm Time Measurements MV dec time: 0.21 sec Doppler Measurements & Calculations MV E max omari: 84.9 cm/sec Lat Peak E' Omari: 7.2 cm/sec Med Peak E' Omari: 5.0 cm/sec MV A max omari: 44.8 cm/sec E/E' lat: 11.7 E/E' med: 16.9 MV E/A: 1.9 Ao V2 max: 118.4 cm/sec LV V1 max: 75.5 cm/sec MV dec slope: 404.0 cm/sec2 Ao max P.6 mmHg LV V1 max P.3 mmHg Ao V2 mean: 84.4 cm/sec LV V1 mean P.3 mmHg Ao mean P.3 mmHg LV V1 mean: 53.5 cm/sec Ao V2 VTI: 35.0 cm LV V1 VTI: 23.0 cm AV (velocity ratio): 0.66 MR max omari: 573.5 cm/sec PA V2 max: 70.1 cm/sec TR max omari: 322.9 cm/sec MR max P.6 mmHg TR max P.7 mmHg MR mean omari: 446.4 cm/sec MR mean P.7 mmHg MR VTI: 248.0 cm ECHO/Echo Complete Interpretation Summary Normal LV size. Bileaflet diffuse mitral valve thickening. Mild (1+) eccentric mitral valve insufficiency. The left ventricular ejection fraction is 50 %. Pulmonary artery systolic pressure is 45 mmHg. Ordering Physician: Tali Taylor Referring Physician: Sherry Galo Performed By: Emilia Trujillo RDCS
== END | disposition home or self-care (01) ==
LOC: CVS 09:47
PROVIDERS: PCP Family Medicine; Referring Provider Physician Assistant Medical; Visit Provider Physician Assistant Medical
DX: I50.20 Unspecified systolic (congestive) heart failure (principal); I34.0 Nonrheumatic mitral (valve) insufficiency
CPT/HCPCS: 93306